=== PATIENT | male | born 1955 | race Caucasian/White ===

== ENCOUNTER 2016-10-03 12:42 | Inpatient (IN) | payer BC ==
[2016-10-03] MEDS ORDERED: NS 0.9% 1000 ML* 1,000 ML IV ONE ×3 (14:17→19:05)
[2016-10-03 14:54] LABS: Hematocrit 47 % (42-52); Hemoglobin 15.7 g/dl (14.0-18.0); Mean Corpuscular HGB Conc 33 g/dl (31-36); Mean Corpuscular Hemoglobin 31 pg (27-31); Mean Corpuscular Volume 95 fL (80-94); Mean Platelet Volume 10 um3 (7.4-10.4); Red Cell Distribution Width 15 % (10.5-15); White Blood Count 14.6 10^3/ul (3.5-10.8)
[2016-10-03 14:57] LABS: Comments Flag Yes
[2016-10-03 14:58] LABS: Add Diff/Slide Review? Slide Review Added
[2016-10-03 15:16] LABS: Albumin 3.8 g/dL (3.2-5.2); BUN/Creatinine Ratio 25.2 (8-20); C Reactive Protein 34.69 mg/L (< 5.00); Calcium 9.2 mg/dL (8.6-10.3); EGFR Non-African American 24.9 (>60); Globulin 2.7 g/dL (2-4); Potassium 4.6 mmol/L (3.5-5.0); Total Bilirubin 0.6 mg/dL (0.2-1.0); Total Protein 6.5 g/dL (6.4-8.9)
[2016-10-03] MEDS ORDERED: Ondansetron INJ* 2 MG/ML VIAL IV PRN (19:05)
[2016-10-03] MEDS ORDERED: Dextrose 50% Syringe 50 ML* 25 GM/50 ML SYRINGE IV PUSH PRN (19:05)
[2016-10-03] MEDS ORDERED: Acetaminophen TAB* 325 MG PO PRN (19:05)
[2016-10-03] MEDS ORDERED: oxyCODONE/Acetamin 5/325 MG* TAB PO PRN (20:14)
[2016-10-03] MEDS ORDERED: Albuterol 2.5 MG/3 ML NEB.SOL* (0.083%) INH PRN (20:18)
[2016-10-03 21:40] LABS: Urine Bacteria Absent (Absent); Urine Bilirubin Negative (Negative); Urine Glucose Negative (Negative); Urine Nitrite Negative (Negative)
[2016-10-03] MEDS: Pregabalin CAP(*) 50 MG PO SCH (21:44)
[2016-10-03] MEDS: Atorvastatin* 20 MG TAB PO SCH (21:45)
[2016-10-03] MEDS: Heparin VIAL(*) 5000 UNITS/ML VIAL (FIVE THOUSAND) SUBCUT SCH (21:46)
--- NOTE | 2016-10-03 21:57 | ED ---
Jaylin Thacker Alfonso, scribed for Rk Garcia MD on 10/03/16 at 1421 . Complex/Multi-Sys Presentation - HPI Summary HPI Summary: This patient is a 61 year old male presenting to [facility] c/o diarrhea for 5 days. He reports vomiting 5 days ago and having diarrhea 10 times a day since. He ate crackers and drank shots of water today. Symptoms aggravated by eating and alleviated by nothing. He reports abdominal pain and chronic back pain. He denies vomiting and nausea today. His who is a nurse reports his stool "smells like c-diff." He denies being on abx recently. - History Of Current Complaint Chief Complaint: EDGeneral Time Seen by Provider: 10/03/16 14:09 Hx Obtained From: Patient, Family/Insurance Agency Manager - Onset/Duration: Sudden Onset, Lasting Days - 5 days, Still Present Timing: Constant Severity Currently: Moderate Severity Initially: Moderate Aggravating Factor(s): Eating Alleviating Factor(s): Nothing Associated Signs And Symptoms: Positive: Vomiting - Positive 5 days ago; negative past 5 days, Diarrhea, Abdominal Pain, Other - Positive chronic low back pain. Negative: Nausea - Allergies/Home Medications Allergies/Adverse Reactions: Allergies Allergy/AdvReac Type Severity Reaction Status Date / Time Cephalexin [From Keflex] Allergy Severe Hives Verified 10/03/16 12:57 Meperidine [From Demerol HCl] Allergy Severe Nausea And Verified 10/03/16 12:57 Vomiting Adhesive Tape Allergy Intermediate Hives Verified 10/03/16 12:57 Cefazolin [From Kefzol] Allergy Rash Verified 10/03/16 12:57 Home Medications: Home Medications Finasteride TAB* [Proscar TAB*] 5 mg PO QPM 10/03/16 [History Confirmed 10/03/16 ] Losartan TAB* [Cozaar TAB*] 100 mg PO DAILY 10/03/16 [History Confirmed 10/03/16 ] Meloxicam(NF) [Mobic(NF)] 15 mg PO DAILY 10/03/16 [History Confirmed 10/03/16] Simvastatin (NF) [Zocor (NF)] 40 mg PO BEDTIME 10/03/16 [History Confirmed 10/03] Xartemis Xr 7.5/325 1 tab PO BID MDD 2 tablets 10/03/16 [History Confirmed 10/03] PMH/Surg Hx/FS Hx/Imm Hx Endocrine/Hematology History: Reports: Hx Diabetes Cardiovascular History: Reports: Hx Coronary Artery Disease, Hx Hypertension - ON MEDS Denies: Hx Pacemaker/ICD, Other Cardiovascular Problems/Disorders Respiratory History: Denies: Other Respiratory Problems/Disorders GI History: Denies: Other GI Disorders History: Reports: Hx Kidney Infection, Hx Kidney Stones - BILAT. HAS STENT IN PLACE, Hx Renal Disease - KIDNEY STONES Musculoskeletal History: Reports: Hx Arthritis - HANDS, KNEES, HIPS, BACK Denies: Other Musculoskeletal History Sensory History: Reports: Hx Hearing Aid Denies: Hx Contacts or Glasses Opthamlomology History: Denies: Hx Contacts or Glasses Neurological History: Denies: Other Neuro Impairments/Disorders Psychiatric History: Reports: Hx Anxiety - NO TREATMENT, Hx Depression - NO TREATMENT Denies: Hx Panic Disorder - Surgical History Surgery Procedure, Year, and Place: RIGHT KIDNEY STENT, BILAT KIDNEY STONE REMOVAL, LUMBAR SURGERY L5-S1 2014 [place]. RIGHT HIP REPLACEMENT. BILATERAL KNEE MENSICUS REPAIR. LASER SURGERY FOR CORRECTIVE VISION Hx Anesthesia Reactions: No Infectious Disease History: Denies: Traveled Outside the [place] in Last 30 Days - Family History Known Family History: Positive: Cardiac Disease - Social History Alcohol Use: Rare Alcohol Amount: HOLIDAYS Substance Use Type: Reports: None Smoking Status (MU): Never Smoked Tobacco Have You Smoked in the Last Year: No Review of Systems Positive: Abdominal Pain, Vomiting - Positive 5 days ago; negative past 5 days, Diarrhea - 10 times a day the past 5 days. Negative: Nausea Positive: Arthralgia - Chronic back pain All Other Systems Reviewed And Are Negative: Yes Physical Exam Triage Information Reviewed: Yes Vital Signs On Initial Exam: Initial Vitals Temp Pulse Resp BP Pulse Ox 97.4 F 93 20 100/56 96 10/03/16 12:57 10/03/16 12:57 10/03/16 12:57 10/03/16 12:57 10/03/16 12:57 Vital Signs Reviewed: Yes Appearance: Positive: Well-Appearing, No Pain Distress, Obese - morbid obesity Skin: Positive: Warm, Skin Color Reflects Adequate Perfusion, Dry Head/Face: Positive: Normal Head/Face Inspection Eyes: Positive: Normal ENT: Positive: Normal ENT inspection Neck: Positive: Supple, Nontender Respiratory/Lung Sounds: Positive: Clear to Auscultation, Breath Sounds Present Cardiovascular: Positive: RRR Abdomen Description: Positive: Nontender, Soft Bowel Sounds: Positive: Present Musculoskeletal: Positive: Normal Neurological: Positive: Normal, Sensory/Motor Intact, Alert, Oriented to Person Place, Time, CN Intact II-III Psychiatric: Positive: Affect/Mood Appropriate Diagnostics - Vital Signs Vital Signs Temp Pulse Resp BP Pulse Ox 10/03/16 12:57 97.4 F 93 20 100/56 96 - Laboratory Lab Results: Lab Results 10/03/16 10/03/16 10/03/16 Range/Units 14:45 14:45 14:45 WBC 14.6 H (3.5-10.8) 10^3/ul RBC 5.00 (4.0-5.4) 10^6/ul Hgb 15.7 (14.0-18.0) g/dl Hct 47 (42-52) % MCV 95 H (80-94) fL MCH 31 (27-31) pg MCHC 33 (31-36) g/dl RDW 15 (10.5-15) % Plt Count 203 (150-450) 10^3/ul MPV 10 (7.4-10.4) um3 Neut % (Auto) 81.2 (38-83) % Lymph % (Auto) 6.7 L (25-47) % [place] % (Auto) 8.6 (1-9) % Eos % (Auto) 3.3 (0-6) % Baso % (Auto) 0.2 (0-2) % Absolute Neuts (auto) 11.8 H (1.5-7.7) 10^3/ul Absolute Lymphs (auto) 1.0 (1.0-4.8) 10^3/ul Absolute Monos (auto) 1.2 H (0-0.8) 10^3/ul Absolute Eos (auto) 0.5 (0-0.6) 10^3/ul Absolute Basos (auto) 0 (0-0.2) 10^3/ul Absolute Nucleated RBC 0.01 10^3/ul Nucleated RBC % 0 Sodium 130 L (133-145) mmol/L Potassium 4.6 (3.5-5.0) mmol/L Chloride 107 (101-111) mmol/L Carbon Dioxide 16 L (22-32) mmol/L Anion Gap 7 (2-11) mmol/L BUN 66 H (6-24) mg/dL Creatinine 2.62 H (0.67-1.17) mg/dL Est GFR ( Amer) 32.0 (>60) Est GFR (Non-Af Amer) 24.9 (>60) BUN/Creatinine Ratio 25.2 H (8-20) Glucose 173 H (70-100) mg/dL Lactic Acid 1.6 (0.5-2.0) mmol/L Calcium 9.2 (8.6-10.3) mg/dL Total Bilirubin 0.60 (0.2-1.0) mg/dL AST 8 L (13-39) U/L ALT 12 (7-52) U/L Alkaline Phosphatase 47 (34-104) U/L C-Reactive Protein 34.69 H (< 5.00) mg/L Total Protein 6.5 (6.4-8.9) g/dL Albumin 3.8 (3.2-5.2) g/dL Globulin 2.7 (2-4) g/dL Albumin/Globulin Ratio 1.4 (1-3) Lipase 19 (11.0-82.0) U/L Result Diagrams: 10/03/16 14:45 10/03/16 14:45 Lab Statement: Any lab studies that have been ordered have been reviewed, and results considered in the medical decision making process. Complex Multi-Symp Course/Dx Course Of Treatment: Mr. Almaguer presented with 5 days of watery diarrhea. He was unable to give us a sample in 5 hours but he was found to be quite dehydrated and I recommended CDU for rehydration. - Diagnoses Provider Diagnoses: Gastroenteritis, Dehydration, severe - Physician Notifications Discussed Care Of Patient With: Velia Adame Time Discussed With Above Provider: 18:28 Instructed by Provider To: Other - Consulted Dr. Adame (hospitalist) who agrees to admit patient. Discharge - Discharge Plan Condition: Stable Disposition: ADMITTED TO [facility] documentation as recorded by the Jaylin light Alfonso accurately reflects the service I personally performed and the decisions made by me, Rk Garcia MD.
[2016-10-03 22:02] LABS: Urine Random Sodium < 18 mmol/L
[2016-10-03] MEDS: NS 0.9% 1000 ML* 1,000 ML IV SCH (23:07)
[2016-10-04] MEDS: oxyCODONE/Acetamin 5/325 MG* TAB PO PRN ×4 (02:30→21:34)
[2016-10-04 04:59] LABS: Hematocrit 40 % (42-52); Hemoglobin 13.4 g/dl (14.0-18.0); Mean Corpuscular HGB Conc 34 g/dl (31-36); Mean Corpuscular Hemoglobin 31 pg (27-31); Mean Corpuscular Volume 93 fL (80-94); Mean Platelet Volume 10 um3 (7.4-10.4); Red Blood Count 4.28 10^6/ul (4.0-5.4); Red Cell Distribution Width 15 % (10.5-15); White Blood Count 14.8 10^3/ul (3.5-10.8)
[2016-10-04 05:02] LABS: Add Diff/Slide Review? Slide Review Added; Comments Flag Yes
[2016-10-04 05:17] LABS: BUN/Creatinine Ratio 29.2 (8-20); Calcium 8.7 mg/dL (8.6-10.3); EGFR African American 40.9 (>60); EGFR Non-African American 31.8 (>60); Potassium 4.1 mmol/L (3.5-5.0)
--- NOTE | 2016-10-04 05:20 | HP ---
CC: Dr. De Los Santos * HISTORY AND PHYSICAL: DATE OF ADMISSION: 10/03/16 PRIMARY CARE PROVIDER: Dr. De Los Santos. ATTENDING PHYSICIAN WHILE IN THE HOSPITAL: Dr. Barry Molina * (report dictated by Devin Ram NP). CHIEF COMPLAINT: 1. Diarrhea. 2. Vomiting. HISTORY OF PRESENTING ILLNESS: Mr. Almaguer is a 61-year-old male patient with multiple medical problems with a history of kidney stones. He comes in today, he states that he noticed, he went to shoot skeet on a trap on Saturday and then Saturday evening he started having one episode of vomiting and then Saturday night and to the morning hours on Saturday he just started having diarrhea. He thinks he is having about 10 to 12 loose yellow bowel movements a day. He had no recent antibiotics and no fevers or abdominal discomfort. He was concerned because he knew he was getting dehydrated. He was feeling lightheaded and drowsy. His felt that he did not seem to be acting himself. He was more again drowsy and lethargic, so she recognized that there may be an issue going on and he may be getting dehydrated and he came into the hospital. He denied having any shortness of breath or chest pain. Again, denied any fevers. No recent antibiotics. Denied any back pain with the exception of his chronic back pain and he was evaluated here. It was noted that he appeared to be dehydrates, appeared to be in acute renal failure. We were asked to evaluate for admission. PAST MEDICAL HISTORY: Significant for: 1. Nephrolithiasis. 2. Hyperlipidemia. 3. Gout. 4. Diabetes. 5. Hypertension. 6. CAD. 7. Back pain. 8. Asthma. 9. ADELA. PAST SURGICAL HISTORY: 1. The patient has had a knee arthroscopy. 2. Right total hip arthroplasty. 3. Back surgery. HOME MEDICATIONS: According to his list include: 1. Xartemis XR 7.5 mg/325 mg 1 tablet p.o. b.i.d. 2. Mobic 15 mg p.o. daily. 3. Hydrochlorothiazide 25 mg p.o. daily. 4. Proscar 5 mg q.p.m. 5. Aspirin 325 mg p.o. b.i.d. 6. Cozaar 100 mg p.o. daily. 7. Insulin Levemir 40 units subcu q.a.m. 8. Toprol 50 mg p.o. q.p.m. 9. Lyrica 300 mg in the morning, 150 mg at bedtime. 10. Glucophage 1700 mg p.o. in the a.m., 850 mg p.o. in the p.m. 11. Zocor 40 mg at bedtime. 12. Norvasc 10 mg daily. 13. Spironolactone 50 mg p.o. q.p.m. ALLERGIES TO MEDICATIONS: Include KEFLEX, DEMEROL, ANCEF, and ADHESIVE TAPE. FAMILY HISTORY: His mother is healthy and still alive, but the father had a history of [place] and CVA. SOCIAL HISTORY: He does not drink, does not smoke. Surrogate decision maker is his significant other. REVIEW OF SYSTEMS: There is no documented fever. Denied any significant weight change. There was no double vision. There was no ear discharge. He denies having any rhinorrhea. No sore throat. No thyroid enlargement. Denied any chest pain. No orthopnea. No nocturnal dyspnea. There was no abdominal pain. There was an episode of nausea and vomiting. No dysuria. No frequency. No loss of consciousness. No pruritus and no skin ulcerations. Review of 14 systems completed, all others were negative. PHYSICAL EXAMINATION GENERAL: At this time, Mr. Almaguer is a 61-year-old male patient; he is morbidly obese. He is sitting in the ER stretcher. He does not appear to be in any acute distress. VITAL SIGNS: Blood pressure 124/66, pulse 95, respirations 16, O2 sat 97%, temperature 98.2. HEENT: Head is atraumatic and normocephalic. Eyes: EOMs are intact. Sclerae were anicteric and not pale. NECK: Supple. Throat: Oral mucosa appears to be moist. No oropharyngeal erythema. LUNGS: Clear to auscultation bilaterally. No wheezes, rales, or rhonchi. HEART: Sounds S1, S2. Regular rate and rhythm. No murmurs, rubs, or gallops. ABDOMEN: Soft, flat, nontender. Bowel sounds were present. EXTREMITIES: Pulses were 2+ throughout. Able to move all 4 extremities with 5/ 5 strength. NEUROLOGICAL: The patient is awake, he is alert, he is oriented x3. His tongue is midline. His jewelry engraver were equal. He had no gross focal deficits. SKIN: Intact. LABORATORY DATA/DIAGNOSTIC STUDIES: Today revealed a WBC of 14.6, RBC of 5.00 , hemoglobin of 15.7, hematocrit 47, and a platelet count of 203. His sodium was 130, potassium 4.6, chloride of 107, bicarb 16, BUN 66, creatinine of 2.62, glucose 173, lactate 1.6, calcium 9.2. Total bili 0.6, AST 8, ALT 12, alk phos 47, albumin of 3.8. Old medical records were reviewed. ASSESSMENT AND PLAN: Mr. Almaguer is a 61-year-old male patient coming into the ER today with complaints of nausea and vomiting and more episodes of diarrhea throughout the week and he will be admitted under observation status for: 1. Gastroenteritis. I suspect he probably has a viral gastroenteritis; however , it is concerning that his white count is 14.6 and he has a mildly elevated CRP. I think we need to get stool cultures, we will do C. diff, ova and parasite, norovirus, rotavirus in the stool culture and see if anything pans out. For the time being, I am holding off antibiotics. He he spikes a fever, starts having abdominal pain, I will put him on Cipro and Flagyl. Probably, we will get imaging of the abdomen, but it was soft and flat, nontender on exam so I do not think we need imaging yet. We will hydrate the patient and treat him supportively and follow. 2. Acute renal failure. I suspect this is probably a prerenal from the fact that he was on his diuretics and having copious amounts of stool. That would also explain his low bicarb as well. My plan is to go ahead and hold his nephrotoxic agents. He is Cozaar, spironolactone, hydrochlorothiazide. We will hold the metformin, we will hold the Mobic. We will hold those medications for the time being and we will hydrate him. We will get a FENa and we will follow. 3. History of nephrolithiasis, not an active issue. 4. Hyperlipidemia. I will continue his statin therapy. 5. Gout. We will hold his allopurinol in the acute illness, we will monitor. 6. Diabetes. He will be on a lispro sliding scale and Levemir. 7. Hypertension. His blood pressure is on the soft side here. His systolics ranged 100 to 120 systolically. I am going to hold his medications with the exception of a beta-almaz, I did order that. I also ordered it though in the immediate release formulation with hold parameters, when he goes home he can go back on sustained release. 8. Coronary artery disease. We will continue his statin therapy and his beta- almaz for the time being and I will continue his aspirin but I am only going to give him his aspirin once daily for the time being. 9. Chronic back pain. I have ordered p.r.n. Percocet. We do not carry his medications. 10. Asthma. I ordered p.r.n. albuterol. 11. Obstructive sleep apnea. We will continue his CPAP. 12. Code status: Full code. 13. Fluids, electrolytes, nutrition: He can have a clear liquid diet. TIME SPENT: On the admission 60 minutes, greater than half the time spent face- to-face with the patient obtaining my history and physical, the other half the time was spent going over the plan of care with the patient and implementing plan of care. I did discuss the plan of care with my attending physician, Dr. Molina, he is in agreement. DEVIN RAM NP [id number]/[facility] #: [id number] ROC[place]
[2016-10-04 06:28] LABS: Immature Granulocytes 22 % (0-9); Metamyelocytes % 1 % (0-2); Neutrophil % 66 % (38-83); RBC Morphology Normal (Normal)
[2016-10-04] MEDS: Heparin VIAL(*) 5000 UNITS/ML VIAL (FIVE THOUSAND) SUBCUT SCH ×3 (06:41→21:37)
[2016-10-04] MEDS: NS 0.9% 1000 ML* 1,000 ML IV SCH (07:30)
[2016-10-04] MEDS: Insulin LISPRO* 1 UNITS UNIT SUBCUT SCH ×3 (08:52→18:34)
[2016-10-04] MEDS: Insulin GLARGINE(*) 1 UNITS UNIT SUBCUT SCH (08:53)
[2016-10-04] MEDS: Pregabalin CAP(*) 100 MG PO SCH (09:00)
[2016-10-04] MEDS: metroNIDAZOLE TAB* 250 MG PO SCH ×3 (09:00→21:36)
[2016-10-04] MEDS: Aspirin TAB* 325 MG PO SCH (09:02)
[2016-10-04] MEDS: Metoprolol Tartrate TAB* 50 mg PO SCH ×2 (09:02→21:36)
[2016-10-04] MEDS ORDERED: oxyCODONE TAB* 5 MG TAB PO ONE (09:44)
[2016-10-04] MEDS: amLODIPine TAB* 5 MG PO SCH (10:24)
--- NOTE | 2016-10-04 11:53 | PN ---
Subjective Date of Service: 10/04/16 Interval History: Pt is unable to use his Xartemis when in hospital and c/o chronic pain "all over ". Diarrhea improving. Denies abd pain Objective Active Medications: Acetaminophen (Tylenol Tab*) 650 mg PO Q4H PRN PRN Reason: FEVER/PAIN Albuterol (Ventolin 2.5 Mg/3 Ml Neb.Bonnie*) 2.5 mg INH Q2H PRN PRN Reason: SOB/WHEEZING Amlodipine Besylate (Norvasc Tab*) 10 mg PO DAILY [facility] Last Admin: 10/04/16 10:24 Dose: 10 mg Aspirin (Aspirin Tab*) 325 mg PO DAILY [facility] Last Admin: 10/04/16 09:02 Dose: 325 mg Atorvastatin Calcium (Lipitor*) 20 mg PO BEDTIME [facility] Last Admin: 10/03/16 21:45 Dose: 20 mg Dextrose (D50w Syringe 50 Ml*) 12.5 gm IV PUSH .FOR FS < 60 - SS PRN PRN Reason: FS < 60 Finasteride (Proscar Tab*) 5 mg PO QPM [facility] Heparin Sodium (Porcine) (Heparin Vial(*)) 5,000 units SUBCUT Q8HR [facility] Last Admin: 10/04/16 06:41 Dose: 5,000 units Lactated Ringer's (Lactated Ringers 1000 Ml Bag*) 1,000 mls @ 100 mls/hr IV PER RATE [facility] Last Admin: 10/04/16 08:58 Dose: 100 mls/hr Insulin Glargine (Lantus(*)) 40 units SUBCUT QAM [facility] Last Admin: 10/04/16 08:53 Dose: 40 units Insulin Human Lispro (Humalog*) 0 units SUBCUT AC [facility] PRN Reason: Protocol Last Admin: 10/04/16 08:52 Dose: 3 units Metoprolol Tartrate (Lopressor Tab*) 50 mg PO Q12HR [facility] Last Admin: 10/04/16 09:02 Dose: 50 mg Metronidazole (Flagyl Tab*) 500 mg PO TID [facility] Last Admin: 10/04/16 09:00 Dose: 500 mg Ondansetron HCl (Zofran Inj*) 4 mg IV Q6H PRN PRN Reason: NAUSEA Oxycodone/Acetaminophen (Percocet 5/325 Tab*) 2 tab PO Q4H PRN PRN Reason: PAIN Last Admin: 10/04/16 10:36 Dose: 2 tab Pregabalin (Lyrica Cap(*)) 150 mg PO BEDTIME [facility] Last Admin: 10/03/16 21:44 Dose: 150 mg Pregabalin (Lyrica Cap(*)) 300 mg PO QAM [facility] Last Admin: 10/04/16 09:00 Dose: 300 mg Vital Signs 10/04/16 10/04/16 10/04/16 08:40 09:00 10:23 Respiratory 16 16 16 Rate 10/04/16 10:36 Respiratory 16 Rate Oxygen Devices in Use Now: None Appearance: 61 yo M in NAD, aAOx3 Eyes: No Scleral Icterus, PERRLA Ears/Nose/Mouth/Throat: NL Teeth, Lips, Gums, Mucous Membranes Moist Neck: NL Appearance and Movements; NL JVP, Trachea Midline Respiratory: Symmetrical Chest Expansion and Respiratory Effort, Clear to Auscultation Cardiovascular: NL Sounds; No Murmurs; No JVD, RRR Abdominal: NL Sounds; No Tenderness; No Distention, No Hepatosplenomegaly Lymphatic: No Cervical Adenopathy Extremities: No Edema, No Clubbing, Cyanosis Skin: No Rash or Ulcers, No Nodules or Sclerosis Neurological: Alert and Oriented x 3, NL Muscle Strength and Tone Result Diagrams: 10/04/16 04:52 10/04/16 04:51 Additional Lab and Data: Lab Results 10/03/16 10/03/16 10/03/16 Range/Units 14:45 14:45 14:45 WBC 14.6 H (3.5-10.8) 10^3/ul RBC 5.00 (4.0-5.4) 10^6/ul Hgb 15.7 (14.0-18.0) g/dl Hct 47 (42-52) % MCV 95 H (80-94) fL MCH 31 (27-31) pg MCHC 33 (31-36) g/dl RDW 15 (10.5-15) % Plt Count 203 (150-450) 10^3/ul MPV 10 (7.4-10.4) um3 Neut % (Auto) 81.2 (38-83) % Lymph % (Auto) 6.7 L (25-47) % [place] % (Auto) 8.6 (1-9) % Eos % (Auto) 3.3 (0-6) % Baso % (Auto) 0.2 (0-2) % Absolute Neuts (auto) 11.8 H (1.5-7.7) 10^3/ul Absolute Lymphs (auto) 1.0 (1.0-4.8) 10^3/ul Absolute Monos (auto) 1.2 H (0-0.8) 10^3/ul Absolute Eos (auto) 0.5 (0-0.6) 10^3/ul Absolute Basos (auto) 0 (0-0.2) 10^3/ul Absolute Nucleated RBC 0.01 10^3/ul Nucleated RBC % 0 Sodium 130 L (133-145) mmol/L Potassium 4.6 (3.5-5.0) mmol/L Chloride 107 (101-111) mmol/L Carbon Dioxide 16 L (22-32) mmol/L Anion Gap 7 (2-11) mmol/L BUN 66 H (6-24) mg/dL Creatinine 2.62 H (0.67-1.17) mg/dL Est GFR ( Amer) 32.0 (>60) Est GFR (Non-Af Amer) 24.9 (>60) BUN/Creatinine Ratio 25.2 H (8-20) Glucose 173 H (70-100) mg/dL Lactic Acid 1.6 (0.5-2.0) mmol/L Calcium 9.2 (8.6-10.3) mg/dL Total Bilirubin 0.60 (0.2-1.0) mg/dL AST 8 L (13-39) U/L ALT 12 (7-52) U/L Alkaline Phosphatase 47 (34-104) U/L C-Reactive Protein 34.69 H (< 5.00) mg/L Total Protein 6.5 (6.4-8.9) g/dL Albumin 3.8 (3.2-5.2) g/dL Globulin 2.7 (2-4) g/dL Albumin/Globulin Ratio 1.4 (1-3) Lipase 19 (11.0-82.0) U/L Assess/Plan/Problems-Billing Assessment: 61 yo M with h/o CKD stage 3, DM2, obesity, chronic pain presents with diarrhea x 3 days and acute renal failure - Patient Problems (1) C. difficile diarrhea Comment: No abd pain Flagyl started today PO. Diarrhea is improving Leukocytosis persists. Bands at 21%, but pt is nontoxic appearing and hemodynamically stable. Will check lactic acid (2) Acute renal failure Comment: On CKD stage 3 due to DM2( creat baseline at 1.2) Improving, cont IVF (3) Acidosis Comment: non anion gap. VBG ordered. suspect due to a comination of IVF(NS switched to LR today) adn renal failure. aldactone/HCTZ held (4) HTN (hypertension) Comment: controlled. cont BB and Norvasc Holding HCTZ/Aldactone due to renal failure (5) DM2 (diabetes mellitus, type 2) Comment: holding metformin, cont Lantus and ISS (6) Chronic pain Comment: Xartemis not on hospital's formulary and [facility] cannot administer pt's own narcotics. will cont Perocet instead. (7) DVT prophylaxis Comment: heparin sc Status and Disposition: inpatient, changed from OBV due to further need of IVF to treat acute renal failure
[2016-10-04 13:21] LABS: Venous Bicarbonate HCO3 15.2 mmol/L (24-28)
[2016-10-04] MEDS: Finasteride TAB* 5 MG PO SCH (17:23)
[2016-10-04] MEDS: Pregabalin CAP(*) 50 MG PO SCH (21:35)
[2016-10-04] MEDS: Atorvastatin* 20 MG TAB PO SCH (21:37)
[2016-10-05] MEDS: oxyCODONE/Acetamin 5/325 MG* TAB PO PRN ×4 (01:42→22:46)
[2016-10-05] MEDS: Heparin VIAL(*) 5000 UNITS/ML VIAL (FIVE THOUSAND) SUBCUT SCH ×3 (05:24→21:08)
[2016-10-05 05:57] LABS: Hematocrit 41 % (42-52); Hemoglobin 13.8 g/dl (14.0-18.0); Mean Corpuscular HGB Conc 34 g/dl (31-36); Mean Corpuscular Hemoglobin 32 pg (27-31); Mean Corpuscular Volume 94 fL (80-94); Mean Platelet Volume 10 um3 (7.4-10.4); Red Blood Count 4.33 10^6/ul (4.0-5.4); Red Cell Distribution Width 15 % (10.5-15); White Blood Count 19.4 10^3/ul (3.5-10.8)
[2016-10-05 06:00] LABS: Add Diff/Slide Review? Slide Review Added; Comments Flag Yes
[2016-10-05 06:17] LABS: BUN/Creatinine Ratio 26.2 (8-20); Calcium 9.3 mg/dL (8.6-10.3); EGFR African American 45.1 (>60); Potassium 4.5 mmol/L (3.5-5.0)
[2016-10-05 08:38] LABS: Immature Granulocytes 16 % (0-9); Metamyelocytes % 6 % (0-2); Myelocytes % 4 % (0-1); Neutrophil % 62 % (38-83); Reactive Lymph % 1 % (0-6)
[2016-10-05 08:39] LABS: RBC Morphology Normal (Normal)
--- NOTE | 2016-10-05 09:14 | PN ---
Subjective Date of Service: 10/05/16 Interval History: Patient seen and examined at bedside. He reports resting well overnight. Denies any CP, SOB, abd pain, n/v. States his diarrhea is starting to "lighten up" and he only had a few episodes yesterday. He is frustrated that his Xartemis is not available to him and reports persistent, severe pain to his hands (particular knuckle joints) and back. Family History: Unchanged from Admission Social History: Unchanged from Admission Past Medical History: Unchanged from Admission Objective Active Medications: Acetaminophen (Tylenol Tab*) 650 mg PO Q4H PRN PRN Reason: FEVER/PAIN Albuterol (Ventolin 2.5 Mg/3 Ml Neb.Bonnie*) 2.5 mg INH Q2H PRN PRN Reason: SOB/WHEEZING Amlodipine Besylate (Norvasc Tab*) 10 mg PO DAILY [facility] Last Admin: 10/04/16 10:24 Dose: 10 mg Aspirin (Aspirin Tab*) 325 mg PO DAILY [facility] Last Admin: 10/04/16 09:02 Dose: 325 mg Atorvastatin Calcium (Lipitor*) 20 mg PO BEDTIME [facility] Last Admin: 10/04/16 21:37 Dose: 20 mg Dextrose (D50w Syringe 50 Ml*) 12.5 gm IV PUSH .FOR FS < 60 - SS PRN PRN Reason: FS < 60 Finasteride (Proscar Tab*) 5 mg PO QPM [facility] Last Admin: 10/04/16 17:23 Dose: 5 mg Heparin Sodium (Porcine) (Heparin Vial(*)) 5,000 units SUBCUT Q8HR [facility] Last Admin: 10/05/16 05:24 Dose: 5,000 units Lactated Ringer's (Lactated Ringers 1000 Ml Bag*) 1,000 mls @ 100 mls/hr IV PER RATE [facility] Last Admin: 10/04/16 21:30 Dose: 100 mls/hr Insulin Glargine (Lantus(*)) 40 units SUBCUT QAM [facility] Last Admin: 10/04/16 08:53 Dose: 40 units Insulin Human Lispro (Humalog*) 0 units SUBCUT AC [facility] PRN Reason: Protocol Last Admin: 10/04/16 18:34 Dose: 6 units Metoprolol Tartrate (Lopressor Tab*) 50 mg PO Q12HR [facility] Last Admin: 10/04/16 21:36 Dose: 50 mg Metronidazole (Flagyl Tab*) 500 mg PO TID [facility] Last Admin: 10/04/16 21:36 Dose: 500 mg Ondansetron HCl (Zofran Inj*) 4 mg IV Q6H PRN PRN Reason: NAUSEA Oxycodone/Acetaminophen (Percocet 5/325 Tab*) 2 tab PO Q4H PRN PRN Reason: PAIN Last Admin: 10/05/16 01:42 Dose: 2 tab Pregabalin (Lyrica Cap(*)) 150 mg PO BEDTIME [facility] Last Admin: 10/04/16 21:35 Dose: 150 mg Pregabalin (Lyrica Cap(*)) 300 mg PO QAM [facility] Last Admin: 10/04/16 09:00 Dose: 300 mg Vital Signs 10/04/16 10/04/16 10/04/16 10:23 10:36 11:00 Temperature Pulse Rate Respiratory 16 16 16 Rate Blood Pressure (mmHg) O2 Sat by Pulse Oximetry 10/04/16 10/04/16 10/04/16 11:41 12:23 12:36 Temperature Pulse Rate 69 Respiratory 16 16 16 Rate Blood Pressure 116/66 (mmHg) O2 Sat by Pulse 100 Oximetry 10/04/16 10/04/16 10/04/16 14:17 14:20 19:55 Temperature 98.1 F Pulse Rate 97 93 Respiratory 16 17 Rate Blood Pressure 155/90 (mmHg) O2 Sat by Pulse 99 99 94 Oximetry 10/04/16 10/04/16 10/04/16 20:00 21:34 21:35 Temperature Pulse Rate Respiratory 16 16 16 Rate Blood Pressure (mmHg) O2 Sat by Pulse Oximetry 10/04/16 10/04/16 10/04/16 23:34 23:35 23:45 Temperature 99.4 F Pulse Rate 77 Respiratory 16 16 18 Rate Blood Pressure 119/73 (mmHg) O2 Sat by Pulse 93 Oximetry 10/05/16 10/05/16 10/05/16 01:42 03:18 03:42 Temperature 98.1 F Pulse Rate 73 Respiratory 16 18 16 Rate Blood Pressure 128/68 (mmHg) O2 Sat by Pulse 96 Oximetry Oxygen Devices in Use Now: None Appearance: WD, WN, middle aged male patient, sitting on edge of bed, NAD Eyes: PERRLA Ears/Nose/Mouth/Throat: Mucous Membranes Moist Neck: NL Appearance and Movements; NL JVP Respiratory: Symmetrical Chest Expansion and Respiratory Effort, Clear to Auscultation Cardiovascular: RRR, No Edema Abdominal: NL Sounds; No Tenderness; No Distention Extremities: No Edema, No Clubbing, Cyanosis Skin: No Rash or Ulcers Neurological: Alert and Oriented x 3, - - [place], exhibits some word finding difficulties Lines/Tubes/Other Access: Clean, Dry and Intact Peripheral IV Nutrition: Taking PO's Result Diagrams: 10/05/16 05:04 10/05/16 05:04 Additional Lab and Data: Lab Results 10/03/16 10/03/16 10/03/16 Range/Units 14:45 14:45 14:45 WBC 14.6 H (3.5-10.8) 10^3/ul RBC 5.00 (4.0-5.4) 10^6/ul Hgb 15.7 (14.0-18.0) g/dl Hct 47 (42-52) % MCV 95 H (80-94) fL MCH 31 (27-31) pg MCHC 33 (31-36) g/dl RDW 15 (10.5-15) % Plt Count 203 (150-450) 10^3/ul MPV 10 (7.4-10.4) um3 Neut % (Auto) 81.2 (38-83) % Lymph % (Auto) 6.7 L (25-47) % [place] % (Auto) 8.6 (1-9) % Eos % (Auto) 3.3 (0-6) % Baso % (Auto) 0.2 (0-2) % Absolute Neuts (auto) 11.8 H (1.5-7.7) 10^3/ul Absolute Lymphs (auto) 1.0 (1.0-4.8) 10^3/ul Absolute Monos (auto) 1.2 H (0-0.8) 10^3/ul Absolute Eos (auto) 0.5 (0-0.6) 10^3/ul Absolute Basos (auto) 0 (0-0.2) 10^3/ul Absolute Nucleated RBC 0.01 10^3/ul Nucleated RBC % 0 Sodium 130 L (133-145) mmol/L Potassium 4.6 (3.5-5.0) mmol/L Chloride 107 (101-111) mmol/L Carbon Dioxide 16 L (22-32) mmol/L Anion Gap 7 (2-11) mmol/L BUN 66 H (6-24) mg/dL Creatinine 2.62 H (0.67-1.17) mg/dL Est GFR ( Amer) 32.0 (>60) Est GFR (Non-Af Amer) 24.9 (>60) BUN/Creatinine Ratio 25.2 H (8-20) Glucose 173 H (70-100) mg/dL Lactic Acid 1.6 (0.5-2.0) mmol/L Calcium 9.2 (8.6-10.3) mg/dL Total Bilirubin 0.60 (0.2-1.0) mg/dL AST 8 L (13-39) U/L ALT 12 (7-52) U/L Alkaline Phosphatase 47 (34-104) U/L C-Reactive Protein 34.69 H (< 5.00) mg/L Total Protein 6.5 (6.4-8.9) g/dL Albumin 3.8 (3.2-5.2) g/dL Globulin 2.7 (2-4) g/dL Albumin/Globulin Ratio 1.4 (1-3) Lipase 19 (11.0-82.0) U/L Assess/Plan/Problems-Billing Assessment: 61 yo M with h/o CKD stage 3, DM2, obesity, chronic pain presents with diarrhea x 3 days and acute renal failure - Patient Problems (1) C. difficile diarrhea Code(s): A04.7 - ENTEROCOLITIS DUE TO CLOSTRIDIUM DIFFICILE Comment: Patient appears to clinically be improving Leukocytosis increased today, but afebrile and hemodynamically stable No abd pain, diarrhea lessening. Will watch for reoccurrence. Continue Flagyl, consider vanco if leukocytosis worsens or diarrhea starts back. (2) Acute renal failure Comment: Acute on chronic CKD stage 3 due to DM2 (creat baseline at 1.2) Improving, cont IVF (3) Acidosis Code(s): E87.2 - ACIDOSIS Comment: Non anion gap Suspect secondary to renal failure Continue to hold aldactone/HCTZ (4) Hyponatremia Code(s): E87.1 - HYPO-OSMOLALITY AND HYPONATREMIA Comment: Suspect secondary to acute renal failure and diarrhea Continue LR, recheck BMP tomorrow (5) Chronic pain Code(s): G89.29 - OTHER CHRONIC PAIN Comment: Xartemis not on hospital's formulary, and [facility] cannot administer pt's own narcotics. Continue Percocet q3h and added on prn oxycodone for breakthrough pain. (6) DM2 (diabetes mellitus, type 2) Comment: BG high 100s-200s Continue Lantus and Lispro SSI Hold home metformin Check HgbA1c Referral to [facility] for diabetes education (7) HTN (hypertension) Code(s): I10 - ESSENTIAL (PRIMARY) HYPERTENSION Comment: Normotensive Continue amlodipine and metoprolol. Holding HCTZ and aldactone due to renal failure (8) DVT prophylaxis Comment: SQ heparin Status and Disposition: inpatient, Anticipate dc in 1-2 days.
[2016-10-05] MEDS: Insulin LISPRO* 1 UNITS UNIT SUBCUT SCH ×3 (09:30→17:52)
[2016-10-05] MEDS: Insulin GLARGINE(*) 1 UNITS UNIT SUBCUT SCH (09:31)
[2016-10-05] MEDS: Pregabalin CAP(*) 100 MG PO SCH (09:32)
[2016-10-05] MEDS: Aspirin TAB* 325 MG PO SCH (09:32)
[2016-10-05] MEDS: metroNIDAZOLE TAB* 250 MG PO SCH ×3 (09:33→20:24)
[2016-10-05] MEDS: Metoprolol Tartrate TAB* 50 mg PO SCH ×2 (09:33→20:24)
[2016-10-05] MEDS: amLODIPine TAB* 5 MG PO SCH (09:33)
[2016-10-05] MEDS ORDERED: oxyCODONE TAB* 5 MG TAB PO PRN (09:36)
[2016-10-05] MEDS: Finasteride TAB* 5 MG PO SCH (17:52)
[2016-10-05] MEDS: Pregabalin CAP(*) 50 MG PO SCH (20:24)
[2016-10-05] MEDS: Atorvastatin* 20 MG TAB PO SCH (20:24)
[2016-10-06] MEDS: Heparin VIAL(*) 5000 UNITS/ML VIAL (FIVE THOUSAND) SUBCUT SCH ×3 (05:17→23:12)
[2016-10-06] MEDS: Aspirin TAB* 325 MG PO SCH (09:25)
[2016-10-06] MEDS: metroNIDAZOLE TAB* 250 MG PO SCH ×3 (09:26→23:10)
[2016-10-06] MEDS: oxyCODONE/Acetamin 5/325 MG* TAB PO PRN ×2 (09:26→13:30)
[2016-10-06] MEDS: Insulin GLARGINE(*) 1 UNITS UNIT SUBCUT SCH (09:27)
[2016-10-06] MEDS: Metoprolol Tartrate TAB* 50 mg PO SCH ×2 (09:27→23:11)
[2016-10-06] MEDS: Pregabalin CAP(*) 100 MG PO SCH (09:27)
[2016-10-06] MEDS: Insulin LISPRO* 1 UNITS UNIT SUBCUT SCH ×3 (09:28→18:19)
[2016-10-06] MEDS ORDERED: Insulin GLARGINE(*) 1 UNITS UNIT SUBCUT SCH (09:44)
--- NOTE | 2016-10-06 09:46 | PN ---
Subjective Date of Service: 10/06/16 Interval History: Mr. Almaguer states that he had no bowel movements yesterday but has had one loose stool thus far today. He denies other complaint including chest pain, SOB , nausea, or abdominal pain. Family History: Unchanged from Admission Social History: Unchanged from Admission Past Medical History: Unchanged from Admission Objective Active Medications: Acetaminophen (Tylenol Tab*) 650 mg PO Q4H PRN Albuterol (Ventolin 2.5 Mg/3 Ml Neb.Bonnie*) 2.5 mg INH Q2H PRN Amlodipine Besylate (Norvasc Tab*) 10 mg PO DAILY [facility] Aspirin (Aspirin Tab*) 325 mg PO DAILY [facility] Atorvastatin Calcium (Lipitor*) 20 mg PO BEDTIME [facility] Dextrose (D50w Syringe 50 Ml*) 12.5 gm IV PUSH .FOR FS < 60 - SS PRN Finasteride (Proscar Tab*) 5 mg PO QPM [facility] Heparin Sodium (Porcine) (Heparin Vial(*)) 5,000 units SUBCUT Q8HR [facility] Lactated Ringer's (Lactated Ringers 1000 Ml Bag*) 1,000 mls @ 100 mls/hr IV PER RATE [facility] Insulin Glargine (Lantus(*)) 40 units SUBCUT QAM [facility] Insulin Human Lispro (Humalog*) 0 units SUBCUT AC [facility] Metoprolol Tartrate (Lopressor Tab*) 50 mg PO Q12HR [facility] Metronidazole (Flagyl Tab*) 500 mg PO TID [facility] Ondansetron HCl (Zofran Inj*) 4 mg IV Q6H PRN Oxycodone HCl (Roxycodone Tab*) 10 mg PO Q8H PRN Oxycodone/Acetaminophen (Percocet 5/325 Tab*) 2 tab PO Q3H PRN Pregabalin (Lyrica Cap(*)) 150 mg PO BEDTIME [facility] Pregabalin (Lyrica Cap(*)) 300 mg PO QAM [facility] Vital Signs 10/05/16 10/05/16 10/05/16 11:31 11:32 16:10 Temperature 97.7 F Pulse Rate 79 Respiratory 16 16 12 Rate Blood Pressure 140/66 (mmHg) O2 Sat by Pulse 99 Oximetry 10/05/16 10/05/16 10/05/16 19:26 19:33 20:00 Temperature 97.4 F Pulse Rate 105 Respiratory 16 16 16 Rate Blood Pressure 147/71 (mmHg) O2 Sat by Pulse 97 Oximetry 10/05/16 10/05/16 10/05/16 20:24 21:33 22:24 Temperature Pulse Rate Respiratory 16 16 16 Rate Blood Pressure (mmHg) O2 Sat by Pulse Oximetry 10/05/16 10/05/16 10/06/16 22:46 23:34 00:46 Temperature 98.7 F Pulse Rate 76 Respiratory 16 16 16 Rate Blood Pressure 109/65 (mmHg) O2 Sat by Pulse 96 Oximetry 10/06/16 10/06/16 10/06/16 05:15 07:57 08:18 Temperature 97.4 F 97.5 F Pulse Rate 91 81 90 Respiratory 16 16 17 Rate Blood Pressure 142/93 141/85 (mmHg) O2 Sat by Pulse 98 99 98 Oximetry 10/06/16 10/06/16 09:26 09:27 Temperature Pulse Rate Respiratory 18 18 Rate Blood Pressure (mmHg) O2 Sat by Pulse Oximetry Oxygen Devices in Use Now: None Appearance: Male sitting up on edge of bed in NAD Eyes: No Scleral Icterus Ears/Nose/Mouth/Throat: Mucous Membranes Moist Neck: Trachea Midline Respiratory: Symmetrical Chest Expansion and Respiratory Effort, Clear to Auscultation Cardiovascular: NL Sounds; No Murmurs; No JVD, No Edema Abdominal: NL Sounds; No Tenderness; No Distention Lymphatic: No Cervical Adenopathy Extremities: No Edema Skin: No Rash or Ulcers Neurological: Alert and Oriented x 3, NL Muscle Strength and Tone Nutrition: Taking PO's Result Diagrams: 10/06/16 11:41 10/05/16 05:04 Additional Lab and Data: Lab Results 10/03/16 10/03/16 10/03/16 Range/Units 14:45 14:45 14:45 WBC 14.6 H (3.5-10.8) 10^3/ul RBC 5.00 (4.0-5.4) 10^6/ul Hgb 15.7 (14.0-18.0) g/dl Hct 47 (42-52) % MCV 95 H (80-94) fL MCH 31 (27-31) pg MCHC 33 (31-36) g/dl RDW 15 (10.5-15) % Plt Count 203 (150-450) 10^3/ul MPV 10 (7.4-10.4) um3 Neut % (Auto) 81.2 (38-83) % Lymph % (Auto) 6.7 L (25-47) % [place] % (Auto) 8.6 (1-9) % Eos % (Auto) 3.3 (0-6) % Baso % (Auto) 0.2 (0-2) % Absolute Neuts (auto) 11.8 H (1.5-7.7) 10^3/ul Absolute Lymphs (auto) 1.0 (1.0-4.8) 10^3/ul Absolute Monos (auto) 1.2 H (0-0.8) 10^3/ul Absolute Eos (auto) 0.5 (0-0.6) 10^3/ul Absolute Basos (auto) 0 (0-0.2) 10^3/ul Absolute Nucleated RBC 0.01 10^3/ul Nucleated RBC % 0 Sodium 130 L (133-145) mmol/L Potassium 4.6 (3.5-5.0) mmol/L Chloride 107 (101-111) mmol/L Carbon Dioxide 16 L (22-32) mmol/L Anion Gap 7 (2-11) mmol/L BUN 66 H (6-24) mg/dL Creatinine 2.62 H (0.67-1.17) mg/dL Est GFR ( Amer) 32.0 (>60) Est GFR (Non-Af Amer) 24.9 (>60) BUN/Creatinine Ratio 25.2 H (8-20) Glucose 173 H (70-100) mg/dL Lactic Acid 1.6 (0.5-2.0) mmol/L Calcium 9.2 (8.6-10.3) mg/dL Total Bilirubin 0.60 (0.2-1.0) mg/dL AST 8 L (13-39) U/L ALT 12 (7-52) U/L Alkaline Phosphatase 47 (34-104) U/L C-Reactive Protein 34.69 H (< 5.00) mg/L Total Protein 6.5 (6.4-8.9) g/dL Albumin 3.8 (3.2-5.2) g/dL Globulin 2.7 (2-4) g/dL Albumin/Globulin Ratio 1.4 (1-3) Lipase 19 (11.0-82.0) U/L Assess/Plan/Problems-Billing Assessment: Mr. Almaguer is a 61 yo M with h/o CKD stage 3, DM2, obesity, and chronic pain who presented on 10/04/16 with diarrhea x 3 days and acute renal failure. - Patient Problems (1) Acute renal failure Comment: - Improving. - Acute on chronic, CKD stage 3 (creat baseline at 1.2). - Continue IVF. (2) C. difficile diarrhea Comment: - Patient appears to clinically be improving, though has had one loose stool today and his WBC is elevated. CRP pending. He is afebrile and hemodynamically stable. - Continue Flagyl. (3) Acidosis Comment: - Essentially unchanged since arrival. - Non-anion gap, suspect secondary to renal failure. - Continue to hold aldactone/HCTZ, continue IVF. (4) Hyponatremia Comment: - Essentially unchanged since arrival. - Suspect secondary to acute renal failure and diarrhea - Continue LR, recheck BMP tomorrow. (5) DM2 (diabetes mellitus, type 2) Comment: - BG high, 200-250. HgbA1c 7.2. - Increase Lantus and Lispro SSI. - Hold home metformin. - Refer to [facility] for diabetes education at discharge. (6) HTN (hypertension) Comment: - BP well controlled. - Continue amlodipine and metoprolol. - Holding HCTZ and aldactone due to acute renal failure. (7) Chronic pain Comment: - Xartemis not on hospital's formulary. - Continue Percocet q3h with prn oxycodone for breakthrough pain. (8) Full code status (9) DVT prophylaxis Comment: - SQ heparin. Status and Disposition: Inpatient with expected LOS > 2 days. Anticipate discharge to home when medically stable.
[2016-10-06] MEDS: amLODIPine TAB* 5 MG PO SCH (10:14)
[2016-10-06] MEDS ORDERED: Insulin GLARGINE(*) 1 UNITS UNIT SUBCUT ONE (11:05)
[2016-10-06 11:48] LABS: Hematocrit 38 % (42-52); Hemoglobin 12.5 g/dl (14.0-18.0); Mean Corpuscular HGB Conc 33 g/dl (31-36); Mean Corpuscular Hemoglobin 31 pg (27-31); Mean Corpuscular Volume 94 fL (80-94); Mean Platelet Volume 10 um3 (7.4-10.4); Red Blood Count 4.01 10^6/ul (4.0-5.4); Red Cell Distribution Width 14 % (10.5-15); White Blood Count 21.6 10^3/ul (3.5-10.8)
[2016-10-06 12:22] LABS: Add Diff/Slide Review? Slide Review Added; Comments Flag Yes
[2016-10-06 13:27] LABS: Eosinophils % 4 % (0-6); Immature Granulocytes 19 % (0-9); Metamyelocytes % 3 % (0-2); Myelocytes % 1 % (0-1); Neutrophil % 62 % (38-83)
[2016-10-06 13:29] LABS: RBC Morphology Normal (Normal)
[2016-10-06] MEDS: Finasteride TAB* 5 MG PO SCH (18:20)
[2016-10-06] MEDS: Atorvastatin* 20 MG TAB PO SCH (23:09)
[2016-10-06] MEDS: Pregabalin CAP(*) 50 MG PO SCH (23:10)
[2016-10-07 05:24] LABS: Hematocrit 36 % (42-52); Hemoglobin 12.1 g/dl (14.0-18.0); Mean Corpuscular HGB Conc 34 g/dl (31-36); Mean Corpuscular Hemoglobin 33 pg (27-31); Mean Corpuscular Volume 96 fL (80-94); Mean Platelet Volume 10 um3 (7.4-10.4); Red Blood Count 3.72 10^6/ul (4.0-5.4); Red Cell Distribution Width 14 % (10.5-15); White Blood Count 18.2 10^3/ul (3.5-10.8)
[2016-10-07 05:32] LABS: Add Diff/Slide Review? Slide Review Added; Comments Flag Yes
[2016-10-07] MEDS: Heparin VIAL(*) 5000 UNITS/ML VIAL (FIVE THOUSAND) SUBCUT SCH (05:40)
[2016-10-07 05:42] LABS: BUN/Creatinine Ratio 24.6 (8-20); C Reactive Protein 140.81 mg/L (< 5.00); Calcium 9.3 mg/dL (8.6-10.3); EGFR African American 74.6 (>60); Potassium 4.3 mmol/L (3.5-5.0)
[2016-10-07] MEDS: Aspirin TAB* 325 MG PO SCH (07:51)
[2016-10-07] MEDS: oxyCODONE/Acetamin 5/325 MG* TAB PO PRN ×2 (07:51→10:56)
[2016-10-07] MEDS: metroNIDAZOLE TAB* 250 MG PO SCH (07:52)
[2016-10-07] MEDS: amLODIPine TAB* 5 MG PO SCH (07:52)
[2016-10-07] MEDS: Pregabalin CAP(*) 100 MG PO SCH (07:52)
[2016-10-07] MEDS: Insulin LISPRO* 1 UNITS UNIT SUBCUT SCH ×2 (07:53→13:01)
[2016-10-07] MEDS: Metoprolol Tartrate TAB* 50 mg PO SCH (07:53)
--- NOTE | 2016-10-07 08:15 | PN ---
Subjective Date of Service: 10/07/16 Interval History: Mr. Almaguer states that he is feeling relatively well today. He denies abdominal pain, has had two small loose bowel movements since I assessed him yesterday, and is tolerating oral intake well without any nausea. He denies chest pain or SOB. He is eager for discharge to home. Family History: Unchanged from Admission Social History: Unchanged from Admission Past Medical History: Unchanged from Admission Objective Active Medications: Acetaminophen (Tylenol Tab*) 650 mg PO Q4H PRN Albuterol (Ventolin 2.5 Mg/3 Ml Neb.Bonnie*) 2.5 mg INH Q2H PRN Amlodipine Besylate (Norvasc Tab*) 10 mg PO DAILY [facility] Aspirin (Aspirin Tab*) 325 mg PO DAILY [facility] Atorvastatin Calcium (Lipitor*) 20 mg PO BEDTIME [facility] Dextrose (D50w Syringe 50 Ml*) 12.5 gm IV PUSH .FOR FS < 60 - SS PRN Finasteride (Proscar Tab*) 5 mg PO QPM [facility] Heparin Sodium (Porcine) (Heparin Vial(*)) 5,000 units SUBCUT Q8HR [facility] Lactated Ringer's (Lactated Ringers 1000 Ml Bag*) 1,000 mls @ 100 mls/hr IV PER RATE [facility] Insulin Glargine (Lantus(*)) 45 units SUBCUT QAM [facility] Insulin Human Lispro (Humalog*) 0 units SUBCUT AC [facility] Metoprolol Tartrate (Lopressor Tab*) 50 mg PO Q12HR [facility] Metronidazole (Flagyl Tab*) 500 mg PO TID [facility] Ondansetron HCl (Zofran Inj*) 4 mg IV Q6H PRN Oxycodone HCl (Roxycodone Tab*) 10 mg PO Q8H PRN Oxycodone/Acetaminophen (Percocet 5/325 Tab*) 2 tab PO Q3H PRN Pregabalin (Lyrica Cap(*)) 150 mg PO BEDTIME [facility] Pregabalin (Lyrica Cap(*)) 300 mg PO QAM [facility] Vital Signs 10/06/16 10/06/16 10/06/16 08:18 09:26 09:27 Temperature Pulse Rate 90 Respiratory 17 18 18 Rate Blood Pressure (mmHg) O2 Sat by Pulse 98 Oximetry 10/06/16 10/06/16 10/06/16 11:26 11:59 13:30 Temperature 99.0 F Pulse Rate 60 Respiratory 18 15 18 Rate Blood Pressure 130/69 (mmHg) O2 Sat by Pulse 97 Oximetry 10/06/16 10/06/16 10/06/16 15:30 16:18 20:00 Temperature 97.7 F Pulse Rate 70 Respiratory 18 16 18 Rate Blood Pressure 132/65 (mmHg) O2 Sat by Pulse 98 Oximetry 10/06/16 10/06/16 10/06/16 20:55 23:10 23:43 Temperature 97.6 F 98.3 F Pulse Rate 78 81 Respiratory 18 20 18 Rate Blood Pressure 161/69 141/75 (mmHg) O2 Sat by Pulse 98 98 Oximetry 10/07/16 10/07/16 10/07/16 01:10 03:42 07:51 Temperature 98.2 F Pulse Rate 66 Respiratory 18 18 20 Rate Blood Pressure 115/49 (mmHg) O2 Sat by Pulse 97 Oximetry 10/07/16 07:52 Temperature Pulse Rate Respiratory 20 Rate Blood Pressure (mmHg) O2 Sat by Pulse Oximetry Oxygen Devices in Use Now: None Appearance: Male sitting up in chair in NAD Eyes: No Scleral Icterus Ears/Nose/Mouth/Throat: Mucous Membranes Moist Neck: Trachea Midline Respiratory: Symmetrical Chest Expansion and Respiratory Effort, Clear to Auscultation Cardiovascular: NL Sounds; No Murmurs; No JVD, No Edema Abdominal: NL Sounds; No Tenderness; No Distention Lymphatic: No Cervical Adenopathy Extremities: No Edema Skin: No Rash or Ulcers Neurological: Alert and Oriented x 3, NL Muscle Strength and Tone Nutrition: Taking PO's Result Diagrams: 10/07/16 04:55 10/07/16 04:55 Additional Lab and Data: Lab Results 10/03/16 10/03/16 10/03/16 Range/Units 14:45 14:45 14:45 WBC 14.6 H (3.5-10.8) 10^3/ul RBC 5.00 (4.0-5.4) 10^6/ul Hgb 15.7 (14.0-18.0) g/dl Hct 47 (42-52) % MCV 95 H (80-94) fL MCH 31 (27-31) pg MCHC 33 (31-36) g/dl RDW 15 (10.5-15) % Plt Count 203 (150-450) 10^3/ul MPV 10 (7.4-10.4) um3 Neut % (Auto) 81.2 (38-83) % Lymph % (Auto) 6.7 L (25-47) % [place] % (Auto) 8.6 (1-9) % Eos % (Auto) 3.3 (0-6) % Baso % (Auto) 0.2 (0-2) % Absolute Neuts (auto) 11.8 H (1.5-7.7) 10^3/ul Absolute Lymphs (auto) 1.0 (1.0-4.8) 10^3/ul Absolute Monos (auto) 1.2 H (0-0.8) 10^3/ul Absolute Eos (auto) 0.5 (0-0.6) 10^3/ul Absolute Basos (auto) 0 (0-0.2) 10^3/ul Absolute Nucleated RBC 0.01 10^3/ul Nucleated RBC % 0 Sodium 130 L (133-145) mmol/L Potassium 4.6 (3.5-5.0) mmol/L Chloride 107 (101-111) mmol/L Carbon Dioxide 16 L (22-32) mmol/L Anion Gap 7 (2-11) mmol/L BUN 66 H (6-24) mg/dL Creatinine 2.62 H (0.67-1.17) mg/dL Est GFR ( Amer) 32.0 (>60) Est GFR (Non-Af Amer) 24.9 (>60) BUN/Creatinine Ratio 25.2 H (8-20) Glucose 173 H (70-100) mg/dL Lactic Acid 1.6 (0.5-2.0) mmol/L Calcium 9.2 (8.6-10.3) mg/dL Total Bilirubin 0.60 (0.2-1.0) mg/dL AST 8 L (13-39) U/L ALT 12 (7-52) U/L Alkaline Phosphatase 47 (34-104) U/L C-Reactive Protein 34.69 H (< 5.00) mg/L Total Protein 6.5 (6.4-8.9) g/dL Albumin 3.8 (3.2-5.2) g/dL Globulin 2.7 (2-4) g/dL Albumin/Globulin Ratio 1.4 (1-3) Lipase 19 (11.0-82.0) U/L Assess/Plan/Problems-Billing Assessment: Mr. Almaguer is a 61 yo M with h/o CKD stage 3, DM2, obesity, and chronic pain who presented on 10/04/16 with diarrhea x 3 days and acute renal failure. - Patient Problems (1) C. difficile diarrhea Comment: - Patient continues to improve. He has had minimal stool, has no abd pain, and is tolerating oral intake well. He is afebrile and hemodynamically stable. His WBC is now falling. - Continue Flagyl po. (2) Acute renal failure Comment: - Resolved. - Acute on chronic, CKD stage 3 (creat baseline at 1.2). (3) Acidosis Comment: - Resolving. - Non-anion gap, suspect secondary to renal failure. - Resume aldactone/HCTZ at time of follow up with PCP. (4) Hyponatremia Comment: - Improving. - Suspect secondary to acute renal failure and diarrhea. (5) DM2 (diabetes mellitus, type 2) Comment: - Patient reports BGs controlled at home, HgbA1c 7.2. Resume home metformin. - Refer to [facility] for diabetes education at discharge. (6) HTN (hypertension) Comment: - BP well controlled. - Continue amlodipine and metoprolol. Resume hctz and aldactone at time of follow up with PCP. (7) Chronic pain Comment: - Resume Xartemis. (8) Full code status (9) DVT prophylaxis Comment: - SQ heparin. Status and Disposition: Inpatient with expected LOS > 2 days. Discharge to home.
[2016-10-07 08:28] VITALS: BP 147/80
--- NOTE | 2016-10-07 14:02 | DS ---
CC: Dr. De Los Santos * [facility] MEDICINE DISCHARGE SUMMARY: DATE OF ADMISSION: 10/03/2016 DATE OF DISCHARGE: 10/07/2016 ATTENDING PHYSICIAN: Jerry Olsen MD* (dictation provided by Riri Sutherland NP ) PRIMARY CARE PHYSICIAN: Jr De Los Santos MD PRIMARY DIAGNOSIS: 1. Clostridium difficile colitis. 2. Acute on chronic renal failure. SECONDARY DIAGNOSES: 1. History of nephrolithiasis. 2. Hyperlipidemia. 3. Gout. 4. Type 2 diabetes, insulin dependent. 5. Hypertension. 6. Coronary artery disease. 7. Chronic back pain. 8. Asthma. 9. Obstructive sleep apnea. 10. Chronic kidney disease. PAST SURGICAL HISTORY: 1. History of knee arthroscopy. 2. Right total hip arthroplasty. 3. History of back surgery. MEDICATIONS AT THE TIME OF DISCHARGE:: 1. Flagyl 500 mg p.o. t.i.d. x10 days (to complete a 14 day course). 2. Xartemis XR 7.5/325 mg one tablet p.o. b.i.d. 3. Mobic 15 mg p.o. daily. 4. Proscar 5 mg p.o. every p.m. 5. Aspirin 325 mg p.o. b.i.d. 6. Cozaar 100 mg p.o. daily. 7. Levemir insulin 40 units subcutaneously every a.m. 8. Toprol 50 mg p.o. every p.m. 9. Lyrica 300 mg in the morning and 150 mg at bedtime. 10. Metformin 1700 mg p.o. in the a.m. and 850 mg p.o. in the p.m. 11. Zocor 40 mg at bedtime. 12. Norvasc 10 mg p.o. daily. Patient has been instructed to hold spironolactone and hydrochlorothiazide until followup with Dr. De Los Santos given recent acute renal failure. HOSPITAL COURSE: Mr. Almaguer is a 61-year-old male with past medical history as outlined above who presented to the hospital on 10/03/16 with concern for diarrhea and vomiting. Mr. Almaguer reported that he had 5 days of diarrhea with nausea at home. He was having about 10-12 loose yellow bowel movements a day. He denies any recent antibiotics, fevers, abdominal discomfort. In the emergency room he had a white blood cell count of 14.6, BUN of 66 and a creatinine of 2.62. Mr. Almaguer was admitted to the hospital. Ultimately his stool culture was positive for C. difficile. He was started on Flagyl 500 mg p.o. t.i.d. With this he has had good resolution of his diarrhea and is down to about 2 bowel movements per day. He has no abdominal pain. He is tolerating oral intake well. His BUN and creatinine today are down to 31 and 1.26 respectively, which is essentially at his baseline. His leukocytosis, which peaked at 21.6 is now down to 18.2. He is afebrile. Mr. Almaguer is doing very well today. Again, he is tolerating oral intake and has minimal bowel movements. He is hemodynamically stable and his white blood cell count is falling. He is medically stable to be discharged to home to followup with Dr. De Los Santos per routine. I have instructed him to hold spironolactone and hydrochlorothiazide until followup with Dr. De Los Santos given his acute renal failure. DISPOSITION: To home. DIET: Consistent carbohydrate, low fat, low salt. ACTIVITY: As tolerated. FOLLOWUP PLANS: Please followup with Dr. De Los Santos in the next one week to followup on C. difficile treatment efficacy and to also consider resumption of hydrochlorothiazide and spironolactone. TIME SPENT: Approximately 60 minutes was spent in the discharge of this patient , more than half the time spent with the patient at the bedside reviewing the events leading up to this hospitalization and during this hospitalization, performing the physical examination, and reviewing the plan of care. RIRI SUTHERLAND NP [id number]/[facility] #: [id number] [place]
[2016-10-09 22:18] LABS: Stool Norovirus Ag NOT DETECTED
== END 2016-10-07 13:45 | disposition home or self-care (01) | DRG 248 ==
LOC: ED 12:42 → MED 19:01 → OBSVTOIN 10-04 08:08
PROVIDERS: ADMIT Hospitalist; ATTEND Internal Medicine
DX: A04.7 Enterocolitis due to Clostridium difficile (principal); N17.9 Acute kidney failure, unspecified; E87.2 Acidosis; E11.22 Type 2 diabetes mellitus with diabetic chronic kidney disease; I13.10 Hypertensive heart and chronic kidney disease without heart failure, with stage 1 through stage 4 chronic kidney disease, or unspecified chronic kidney disease; N18.3 Chronic kidney disease, stage 3 (moderate); E87.1 Hypo-osmolality and hyponatremia; I25.10 Atherosclerotic heart disease of native coronary artery without angina pectoris; E78.5 Hyperlipidemia, unspecified; M10.9 Gout, unspecified; G47.33 Obstructive sleep apnea (adult) (pediatric); J45.909 Unspecified asthma, uncomplicated; M54.9 Dorsalgia, unspecified; Z96.641 Presence of right artificial hip joint; Z79.84 Long term (current) use of oral hypoglycemic drugs; Z79.82 Long term (current) use of aspirin; Z79.4 Long term (current) use of insulin; Z79.899 Other long term (current) drug therapy; Z88.8 Allergy status to other drugs, medicaments and biological substances; Z91.048 Other nonmedicinal substance allergy status; Z82.3 Family history of stroke; Z82.49 Family history of ischemic heart disease and other diseases of the circulatory system
CPT/HCPCS: 36415; 80048; 80053; 81003; 81015; 82272; 82570; 82803; 83036; 83605; 83630; 83690; 84300; 85025; 85610; 86140; 87040; 87045; 87046; 87086; 87177; 87209; 87328; 87329; 87425; 87449; 87493; 87899; 94760; A9270-GY; G0378; J1644

== ENCOUNTER 2021-06-02 10:44 | Observation (INO) ==
[2021-06-02 12:58] LABS: Hematocrit 38 % (42-52); Hemoglobin 12.7 g/dL (14.0-18.0); Mean Corpuscular HGB Conc 34 g/dL (31-36); Mean Corpuscular Hemoglobin 31 pg (27-31); Mean Corpuscular Volume 93 fL (80-94); Red Blood Count 4.07 10^6 /uL (4.18-5.48); Red Cell Distribution Width 15 % (10-15); White Blood Count 11.4 10^3/uL (3.5-10.8)
[2021-06-02 13:08] LABS: ALT 11 U/L (7-52); Albumin 3.3 g/dL (3.2-5.2); Albumin/Globulin Ratio 1.2 (1-3); Alkaline Phosphatase 60 U/L (35-149); Blood Urea Nitrogen 35 mg/dL (6-24); CO2 Carbon Dioxide 23 mmol/L (22-32); Calcium 9.6 mg/dL (8.6-10.3); Chloride 109 mmol/L (101-111); Globulin 2.8 g/dL (2-4); Glucose 126 mg/dL (70-100); Sodium 139 mmol/L (135-145); Total Protein 6.1 g/dL (6.4-8.9); eGFR CKD-EPI 31.2 (>60)
[2021-06-02 13:18] LABS: Anion Gap 7 mmol/L (2-11)
[2021-06-02 13:55] LABS: ABS Basophils 0.1 10^3/ul (0-0.2); ABS Eosinophils 0.5 10^3/ul (0-0.6); ABS Lymphocytes 1.1 10^3/ul (1.0-4.8); ABS Monocytes 0.7 10^3/ul (0-0.8); ABS Neutrophils 9.1 10^3/ul (1.5-7.7); Eosinophil % 4.2 %; Lymphocyte % 9.3 %; Mean Platelet Volume 9.9 fL (7.4-10.4); Platelet Count 179 10^3/uL (150-450)
[2021-06-02 14:20] LABS: Potassium Redraw 4.2 mmol/L (3.5-5.0)
[2021-06-02 16:36] LABS: C Reactive Protein 5.39 mg/L (<8.01)
[2021-06-02] MEDS: Enoxaparin 40 MG/0.4 ML SYR SUBCUT SCH (18:16)
[2021-06-02] MEDS: oxyCODONE SR 20 mg TAB PO SCH (22:45)
[2021-06-03 06:54] LABS: ABS Basophils 0.1 10^3/ul (0-0.2); ABS Eosinophils 0.5 10^3/ul (0-0.6); ABS Lymphocytes 1.3 10^3/ul (1.0-4.8); ABS Monocytes 0.7 10^3/ul (0-0.8); ABS Neutrophils 6.9 10^3/ul (1.5-7.7); Eosinophil % 5.7 %; Hematocrit 37 % (42-52); Hemoglobin 12.4 g/dL (14.0-18.0); Lymphocyte % 13.6 %; Mean Corpuscular HGB Conc 34 g/dL (31-36); Mean Corpuscular Hemoglobin 32 pg (27-31); Mean Corpuscular Volume 94 fL (80-94); Mean Platelet Volume 9.6 fL (7.4-10.4); Platelet Count 182 10^3/uL (150-450); Red Blood Count 3.94 10^6 /uL (4.18-5.48); Red Cell Distribution Width 15 % (10-15); White Blood Count 9.5 10^3/uL (3.5-10.8)
[2021-06-03] MEDS ORDERED: Flu vaccine *QUAD* 2021-22* 0.5 ML SYRINGE IM ONE (09:00)
[2021-06-03] MEDS: oxyCODONE SR 20 mg TAB PO SCH ×3 (10:39→20:24)
[2021-06-03] MEDS: Enoxaparin 40 MG/0.4 ML SYR SUBCUT SCH (14:58)
[2021-06-04] MEDS: oxyCODONE SR 20 mg TAB PO SCH ×3 (07:46→20:32)
[2021-06-04] MEDS ORDERED: Senna TAB 8.6 mg TAB PO PRN (13:03)
[2021-06-04] MEDS ORDERED: Magnesium Hydroxide LIQ 30 ML UDC PO ONE (13:04)
[2021-06-04] MEDS: Enoxaparin 40 MG/0.4 ML SYR SUBCUT SCH (15:25)
[2021-06-05] MEDS: oxyCODONE SR 20 mg TAB PO SCH ×3 (08:58→20:18)
[2021-06-05] MEDS: Polyethylene Glycol 3350 17 GM PACKET PO SCH (09:00)
[2021-06-05] MEDS: Enoxaparin 40 MG/0.4 ML SYR SUBCUT SCH (17:02)
[2021-06-06] MEDS: Polyethylene Glycol 3350 17 GM PACKET PO SCH (09:17)
[2021-06-06] MEDS: oxyCODONE SR 20 mg TAB PO SCH ×3 (09:19→20:16)
[2021-06-06] MEDS: Enoxaparin 40 MG/0.4 ML SYR SUBCUT SCH (14:48)
[2021-06-07] MEDS: oxyCODONE SR 20 mg TAB PO SCH (09:00)
[2021-06-07] MEDS: Polyethylene Glycol 3350 17 GM PACKET PO SCH (09:01)
[2021-06-07 13:36] VITALS: BP 153/63
== END 2021-06-07 14:35 | disposition swing bed (61) ==
LOC: ED 10:44 → EDHOLD 10:44 → SUATTDRO 15:31 → MED 21:08 → MEDTELE 06-03 10:30
PROVIDERS: ADMIT Hospitalist; ATTEND Internal Medicine

== ENCOUNTER 2021-06-07 14:41 | Inpatient (IN) ==
[2021-06-07] MEDS ORDERED: Senna TAB 8.6 mg TAB PO PRN (14:59)
[2021-06-07] MEDS: Enoxaparin 40 MG/0.4 ML SYR SUBCUT SCH (16:15)
[2021-06-07] MEDS: oxyCODONE SR 20 mg TAB PO SCH ×2 (16:15→23:59)
[2021-06-08] MEDS: oxyCODONE SR 20 mg TAB PO SCH ×3 (08:51→20:15)
[2021-06-08] MEDS: Polyethylene Glycol 3350 17 GM PACKET PO SCH (11:36)
[2021-06-08] MEDS: Enoxaparin 40 MG/0.4 ML SYR SUBCUT SCH (18:43)
[2021-06-09] MEDS: oxyCODONE SR 20 mg TAB PO SCH ×3 (07:51→20:35)
[2021-06-09] MEDS: Polyethylene Glycol 3350 17 GM PACKET PO SCH (07:55)
[2021-06-09] MEDS: Enoxaparin 40 MG/0.4 ML SYR SUBCUT SCH (14:06)
[2021-06-10] MEDS: Polyethylene Glycol 3350 17 GM PACKET PO SCH (09:11)
[2021-06-10] MEDS: oxyCODONE SR 20 mg TAB PO SCH ×3 (09:12→20:22)
[2021-06-10] MEDS: Enoxaparin 40 MG/0.4 ML SYR SUBCUT SCH (15:28)
[2021-06-11] MEDS: oxyCODONE SR 20 mg TAB PO SCH ×3 (09:09→20:49)
[2021-06-11] MEDS: Polyethylene Glycol 3350 17 GM PACKET PO SCH (09:10)
[2021-06-11] MEDS: Enoxaparin 40 MG/0.4 ML SYR SUBCUT SCH (14:40)
[2021-06-12] MEDS: oxyCODONE SR 20 mg TAB PO SCH ×4 (07:54→20:35)
[2021-06-12] MEDS: Polyethylene Glycol 3350 17 GM PACKET PO SCH (07:57)
[2021-06-12] MEDS: Enoxaparin 40 MG/0.4 ML SYR SUBCUT SCH (14:49)
[2021-06-13] MEDS: oxyCODONE SR 20 mg TAB PO SCH ×4 (03:51→20:01)
[2021-06-13] MEDS: Polyethylene Glycol 3350 17 GM PACKET PO SCH (08:44)
[2021-06-13] MEDS: Enoxaparin 40 MG/0.4 ML SYR SUBCUT SCH (14:32)
[2021-06-14] MEDS: oxyCODONE SR 20 mg TAB PO SCH ×4 (03:31→20:55)
[2021-06-14] MEDS: Polyethylene Glycol 3350 17 GM PACKET PO SCH (10:08)
[2021-06-14] MEDS: Enoxaparin 40 MG/0.4 ML SYR SUBCUT SCH (16:14)
[2021-06-15] MEDS: oxyCODONE SR 20 mg TAB PO SCH ×4 (03:35→21:02)
[2021-06-15] MEDS: Polyethylene Glycol 3350 17 GM PACKET PO SCH (09:21)
[2021-06-15] MEDS: Enoxaparin 40 MG/0.4 ML SYR SUBCUT SCH (15:25)
[2021-06-16] MEDS: oxyCODONE SR 20 mg TAB PO SCH ×4 (03:50→20:52)
[2021-06-16] MEDS: Polyethylene Glycol 3350 17 GM PACKET PO SCH (09:30)
[2021-06-16] MEDS: Enoxaparin 40 MG/0.4 ML SYR SUBCUT SCH (15:35)
[2021-06-17] MEDS: oxyCODONE SR 20 mg TAB PO SCH ×4 (03:20→21:00)
[2021-06-17] MEDS: Polyethylene Glycol 3350 17 GM PACKET PO SCH (08:47)
[2021-06-17] MEDS: Enoxaparin 40 MG/0.4 ML SYR SUBCUT SCH (14:58)
[2021-06-18] MEDS: oxyCODONE SR 20 mg TAB PO SCH ×4 (03:01→21:05)
[2021-06-18] MEDS: Polyethylene Glycol 3350 17 GM PACKET PO SCH (10:01)
[2021-06-18] MEDS: Enoxaparin 40 MG/0.4 ML SYR SUBCUT SCH (15:16)
[2021-06-19] MEDS: oxyCODONE SR 20 mg TAB PO SCH ×4 (03:08→21:15)
[2021-06-19] MEDS: Polyethylene Glycol 3350 17 GM PACKET PO SCH (09:09)
[2021-06-19] MEDS: Enoxaparin 40 MG/0.4 ML SYR SUBCUT SCH (14:28)
[2021-06-20] MEDS: oxyCODONE SR 20 mg TAB PO SCH ×2 (02:48→08:14)
[2021-06-20 07:45] VITALS: BP 137/70
[2021-06-20] MEDS: Polyethylene Glycol 3350 17 GM PACKET PO SCH (08:22)
[2021-06-20 08:41] LABS: Rapid COVID-19 Molecular Undetected (Undetected)
== END 2021-06-20 11:55 | DRG 554 ==
LOC: MEDTELE 14:41 → SUATTDRO 14:41 → MED 06-17 16:39
PROVIDERS: ADMIT Internal Medicine; ATTEND Internal Medicine

== ENCOUNTER 2024-04-01 17:50 | Inpatient (IN) ==
[2024-04-01 19:05] LABS: ABS Basophils 0.1 10^3/uL (0.0-0.1); ABS Eosinophils 0.1 10^3/uL (0.0-0.5); ABS Lymphocytes 0.6 10^3/uL (1.0-4.8); ABS Monocytes 0.2 10^3/uL (0.0-1.1); ABS Nucleated RBC 0.02 10^3/ul; Eosinophil % 0.5 %; Hemoglobin 11.7 g/dL (13.2-16.3); Lymphocyte % 4.4 %; Mean Corpuscular Hemoglobin 31.5 pg (27-33); Mean Corpuscular Hgb Conc 32.6 g/dL (31-36); Mean Corpuscular Volume 96.6 fL (80-97); Mean Platelet Volume 8.9 fL (7.5-11.2); Nucleated Red Blood Cells % 0.1 %/100WBC (0.0-0.8); Platelet Count 296 10^3/uL (150-450); Red Blood Count 3.72 10^6/uL (4.06-5.63); Red Cell Distribution Width 17.5 % (12-17)
[2024-04-01 19:23] LABS: Activated Partial Thrombo Time 35.7 seconds (26.0-38.0); INR 1.02 (0.85-1.14)
[2024-04-01 19:38] LABS: Albumin 3.9 g/dL (3.5-5.7); Albumin/Globulin Ratio 1.6 (1-3); C Reactive Protein 2.87 mg/L (<8.01); Calcium 9.1 mg/dL (8.6-10.3); Creatinine, Serum 6.18 mg/dL (0.67-1.17); Globulin 2.5 g/dL (2-4); Potassium 5.3 mmol/L (3.5-5.0); Total Bilirubin 0.2 mg/dL (0.2-1.0); Total Protein 6.4 g/dL (6.4-8.9); eGFR CKD-EPI 9.2 (>60)
[2024-04-01] MEDS: Lactated Ringers 1000 ml BAG 1,000 ML IV ONE (19:43)
[2024-04-01 21:27] LABS: High Sensitivity Troponin 1 Hr 26 pg/mL (<20)
[2024-04-01 23:37] LABS: TSH Ultra Thyroid Stim Horm 3.53 mcIU/mL (0.34-5.60)
[2024-04-01 23:58] LABS: Urine Appearance Turbid; Urine Bilirubin Negative (Negative); Urine Blood Trace (Negative); Urine Color Light-Yellow; Urine Glucose Trace (Negative); Urine Ketones Negative (Negative); Urine Nitrite 1+ (Negative); Urine Protein 3+ (>=300 mg/dL) (Negative); Urine Specific Gravity 1.014 (1.002-1.030); Urine Urobilinogen Negative (Negative)
[2024-04-02 00:09] LABS: Urine Bacteria 1+ /HPF (Absent); Urine Red Blood Cell Trace(0-2/hpf) /HPF (0-Trace); Urine Squamous Epithelial Cell Present /HPF (Absent); Urine White Blood Cell 3+(>20/hpf) /HPF (0-Trace)
[2024-04-02 06:10] LABS: ABS Basophils 0.1 10^3/uL (0.0-0.1); ABS Lymphocytes 0.5 10^3/uL (1.0-4.8); ABS Monocytes 0.6 10^3/uL (0.0-1.1); ABS Neutrophils 11.3 10^3/uL (1.5-7.6); ABS Nucleated RBC 0.01 10^3/ul; Hematocrit 31.3 % (38-53); Hemoglobin 10.5 g/dL (13.2-16.3); Lymphocyte % 4.2 %; Mean Corpuscular Hemoglobin 32.1 pg (27-33); Mean Corpuscular Hgb Conc 33.4 g/dL (31-36); Mean Platelet Volume 8.9 fL (7.5-11.2); Platelet Count 266 10^3/uL (150-450); Red Blood Count 3.26 10^6/uL (4.06-5.63); Red Cell Distribution Width 17.3 % (12-17); White Blood Count 12.6 10^3/uL (3.6-10.2)
[2024-04-02 06:28] LABS: Calcium 8.9 mg/dL (8.6-10.3); Potassium 5.2 mmol/L (3.5-5.0); eGFR CKD-EPI 9.5 (>60)
[2024-04-02] MEDS: cefTRIAXone 1 gm/50 mL D5W 1 GM/50 ML BAG IV SCH (08:13)
[2024-04-02] MEDS: SODIUM ZIRCONIUM CYCLOSILICATE 10 GM PACKET PO ONE (13:31)
[2024-04-02 14:53] LABS: Hepatitis B Surface Ab Immune (Immune); Hepatitis C Antibody Negative (Negative)
[2024-04-02] MEDS ORDERED: Senna TAB 8.6 mg TAB PO PRN (17:37)
[2024-04-02 21:05] LABS: Hepatitis B Surface Antigen Nonreactive (Nonreactive)
[2024-04-03 05:56] LABS: Hematocrit 29.6 % (38-53); Mean Corpuscular Hemoglobin 32.4 pg (27-33); Mean Corpuscular Hgb Conc 33.8 g/dL (31-36); Mean Platelet Volume 9.5 fL (7.5-11.2); Platelet Count 257 10^3/uL (150-450); Red Blood Count 3.09 10^6/uL (4.06-5.63)
[2024-04-03 06:14] LABS: Calcium 8.9 mg/dL (8.6-10.3); Creatinine, Serum 6.24 mg/dL (0.67-1.17); Magnesium 2.1 mg/dL (1.9-2.7); Potassium 4.5 mmol/L (3.5-5.0); eGFR CKD-EPI 9.1 (>60)
[2024-04-03 08:09] LABS: C Reactive Protein 2.83 mg/L (<8.01)
[2024-04-03] MEDS: Albuterol/Ipratropium NEB.SOL (2.5/0.5 MG) 3 ML NEB.SOLN INH ONE (09:05)
[2024-04-03] MEDS: Azithromycin 500 mg/250 ml NS 500 MG/250 ML BAG IVPB SCH (10:22)
[2024-04-04 06:58] LABS: Hematocrit 32.6 % (38-53); Mean Corpuscular Hemoglobin 32.2 pg (27-33); Mean Corpuscular Hgb Conc 33.7 g/dL (31-36); Mean Corpuscular Volume 95.5 fL (80-97); Mean Platelet Volume 9.2 fL (7.5-11.2); Platelet Count 280 10^3/uL (150-450); Red Blood Count 3.42 10^6/uL (4.06-5.63); Red Cell Distribution Width 16.9 % (12-17); White Blood Count 14.7 10^3/uL (3.6-10.2)
[2024-04-04 07:15] LABS: Calcium 8.6 mg/dL (8.6-10.3); Creatinine, Serum 5.6 mg/dL (0.67-1.17); Magnesium 1.9 mg/dL (1.9-2.7); Potassium 4.4 mmol/L (3.5-5.0); eGFR CKD-EPI 10.3 (>60)
[2024-04-04] MEDS: Lidocaine PATCH 5% PATCH TRANSDERM SCH (16:01)
[2024-04-05 06:55] LABS: Hematocrit 31.4 % (38-53); Hemoglobin 10.6 g/dL (13.2-16.3); Mean Corpuscular Hemoglobin 32.3 pg (27-33); Mean Corpuscular Hgb Conc 33.7 g/dL (31-36); Mean Corpuscular Volume 95.8 fL (80-97); Mean Platelet Volume 9.1 fL (7.5-11.2); Platelet Count 275 10^3/uL (150-450); Red Blood Count 3.28 10^6/uL (4.06-5.63); White Blood Count 13.2 10^3/uL (3.6-10.2)
[2024-04-05 07:24] LABS: Calcium 8.3 mg/dL (8.6-10.3); Creatinine, Serum 5.05 mg/dL (0.67-1.17); Magnesium 1.8 mg/dL (1.9-2.7); Potassium 4.2 mmol/L (3.5-5.0); eGFR CKD-EPI 11.7 (>60)
[2024-04-05] MEDS: Magnesium Sulfate 2 gm BAG 2 GM/50 ML BAG IVPB ONE (09:41)
[2024-04-05] MEDS: dilTIAZem 30 MG TAB PO ONE (10:37)
[2024-04-05 15:06] LABS: TB1 Ag minus Nil Result -0.01 IU/mL; TB2 Ag minus Nil Result -0.01 IU/mL
[2024-04-05 15:15] LABS: QuantiferonTb Gold Plus Result Negative (Negative)
[2024-04-05] MEDS ORDERED: dilTIAZem 30 MG TAB PO SCH ×2 (18:00)
[2024-04-05] MEDS: dilTIAZem 30 MG TAB PO SCH (18:09)
[2024-04-06 06:26] LABS: Hematocrit 31.9 % (38-53); Hemoglobin 10.6 g/dL (13.2-16.3); Mean Corpuscular Hemoglobin 31.7 pg (27-33); Mean Corpuscular Hgb Conc 33.1 g/dL (31-36); Mean Corpuscular Volume 95.7 fL (80-97); Mean Platelet Volume 9.6 fL (7.5-11.2); Platelet Count 298 10^3/uL (150-450); Red Blood Count 3.34 10^6/uL (4.06-5.63); White Blood Count 14.1 10^3/uL (3.6-10.2)
[2024-04-06 06:53] LABS: Calcium 8.7 mg/dL (8.6-10.3); Creatinine, Serum 5.27 mg/dL (0.67-1.17); Magnesium 2.2 mg/dL (1.9-2.7); Phosphorus 6.3 mg/dL (2.5-5.0); Potassium 4.5 mmol/L (3.5-5.0); eGFR CKD-EPI 11.1 (>60)
[2024-04-06 07:26] LABS: ABS Basophils 0.2 10^3/uL (0.0-0.1); ABS Eosinophils 0.8 10^3/uL (0.0-0.5); ABS Lymphocytes 1.2 10^3/uL (1.0-4.8); ABS Monocytes 1.6 10^3/uL (0.0-1.1); ABS Neutrophils 10.3 10^3/uL (1.5-7.6); ABS Nucleated RBC 0.02 10^3/ul; Eosinophil % 5.6 %; Lymphocyte % 8.5 %; Nucleated Red Blood Cells % 0.1 %/100WBC (0.0-0.8)
[2024-04-06] MEDS ORDERED: dilTIAZem 30 MG TAB PO SCH (09:00)
[2024-04-06 13:09] VITALS: BP 114/78
== END 2024-04-06 16:40 | disposition home or self-care (01) | DRG 871 ==
LOC: EDHOLD 17:50 → ED 17:50 → SUATTDRO 22:42 → MED 23:47
PROVIDERS: ADMIT Hospitalist; ATTEND Internal Medicine

== ENCOUNTER 2024-05-06 22:15 | Inpatient (IN) ==
[2024-05-06 23:05] LABS: ABS Basophils 0.2 10^3/uL (0.0-0.1); ABS Eosinophils 0.6 10^3/uL (0.0-0.5); ABS Lymphocytes 1.3 10^3/uL (1.0-4.8); ABS Monocytes 1.1 10^3/uL (0.0-1.1); ABS Neutrophils 10.6 10^3/uL (1.5-7.6); ABS Nucleated RBC 0.01 10^3/ul; Eosinophil % 4.2 %; Hematocrit 31.9 % (38-53); Hemoglobin 10.3 g/dL (13.2-16.3); Lymphocyte % 9.8 %; Mean Corpuscular Hemoglobin 30.9 pg (27-33); Mean Corpuscular Hgb Conc 32.4 g/dL (31-36); Mean Corpuscular Volume 95.4 fL (80-97); Mean Platelet Volume 8.8 fL (7.5-11.2); Nucleated Red Blood Cells % 0.1 %/100WBC (0.0-0.8); Platelet Count 289 10^3/uL (150-450); Red Blood Count 3.35 10^6/uL (4.06-5.63); Red Cell Distribution Width 17.4 % (12-17); White Blood Count 13.7 10^3/uL (3.6-10.2)
[2024-05-06] MEDS: Amiodarone 150 mg IVPREMIX 150 MG/100 ML BAG IV ONE (23:05)
[2024-05-06 23:15] LABS: INR 1.17 (0.85-1.14)
[2024-05-06 23:51] LABS: Albumin 3.1 g/dL (3.5-5.7); Albumin/Globulin Ratio 1.3 (1-3); Calcium 8.3 mg/dL (8.6-10.3); Creatinine, Serum 6.25 mg/dL (0.67-1.17); Globulin 2.4 g/dL (2-4); Magnesium 1.8 mg/dL (1.9-2.7); Potassium 4.5 mmol/L (3.5-5.0); Total Bilirubin 0.2 mg/dL (0.2-1.0); Total Protein 5.5 g/dL (6.4-8.9)
[2024-05-07 00:06] LABS: TSH Ultra Thyroid Stim Horm 6.69 mcIU/mL (0.34-5.60)
[2024-05-07] MEDS: Magnesium Sulfate IV 1GM/100ML 1 GM/100 ML BAG IV ONE (00:06)
[2024-05-07] MEDS ORDERED: .Amiodarone 24HR ONLY IV Protocol Order Note IV ONE (00:08)
[2024-05-07] MEDS: Amiodarone 360 MG IVPREMIX 360 MG/200 ML BAG IV SCH ×2 (00:28→06:33)
[2024-05-07 00:49] LABS: High Sensitivity Troponin 1 Hr 58 pg/mL (<20)
[2024-05-07 01:06] LABS: HDL Cholesterol 27.1 mg/dL
[2024-05-07] MEDS: Heparin DRIP 25,000 UNITS BAG 25,000 UNITS/250 ML BAG IV SCH ×3 (01:45→14:57)
[2024-05-07] MEDS ORDERED: Heparin 5000 UNITS/ML 1 mL VIAL IV SCH ×2 (02:00→10:00)
[2024-05-07 03:35] LABS: Urine Appearance Clear; Urine Bilirubin Negative (Negative); Urine Blood Negative (Negative); Urine Color Light-Yellow; Urine Glucose 2+ (>=150 mg/dL) (Negative); Urine Ketones Negative (Negative); Urine Nitrite Negative (Negative); Urine Protein 3+ (>=300 mg/dL) (Negative); Urine Specific Gravity 1.014 (1.002-1.030); Urine Urobilinogen Negative (Negative); Urine pH 6.5 (5.0-8.0)
[2024-05-07 04:28] LABS: Urine Bacteria Absent /HPF (Absent); Urine Red Blood Cell Absent /HPF (0-Trace); Urine Squamous Epithelial Cell Present /HPF (Absent); Urine White Blood Cell Trace(0-5/hpf) /HPF (0-Trace)
[2024-05-07 06:14] LABS: Creatinine, Serum 5.91 mg/dL (0.67-1.17); Phosphorus 7.2 mg/dL (2.5-5.0); Potassium 4.5 mmol/L (3.5-5.0); eGFR CKD-EPI 9.6 (>60)
[2024-05-07] MEDS ORDERED: Sulfur Hexaflouride MICROSPHR 25 MG VIAL IV PRN (08:26)
[2024-05-07] MEDS ORDERED: Sulfur Hexaflouride MICROSPHR 25 MG VIAL ONE (09:01)
[2024-05-07] MEDS: Heparin 1,000 UNIT/ML 10 ml (10,000 UNITS) CATHLAB/DIALYSIS DIALYSIS ONE ×2 (09:24→11:33)
[2024-05-07] MEDS: Sulfur Hexaflouride MICROSPHR 25 MG VIAL IV PRN (09:46)
[2024-05-07] MEDS: Pantoprazole VIAL 40 MG VIAL IV SCH (11:31)
[2024-05-07 14:33] LABS: Creatinine, Serum 5.63 mg/dL (0.67-1.17); eGFR CKD-EPI 10.2 (>60)
[2024-05-07 14:37] LABS: ABS Basophils 0.2 10^3/uL (0.0-0.1); ABS Eosinophils 0.4 10^3/uL (0.0-0.5); ABS Lymphocytes 1.8 10^3/uL (1.0-4.8); ABS Monocytes 1.3 10^3/uL (0.0-1.1); Eosinophil % 2.7 %; Hematocrit 30.7 % (38-53); Hemoglobin 10.1 g/dL (13.2-16.3); Lymphocyte % 12.1 %; Mean Corpuscular Hemoglobin 31.4 pg (27-33); Mean Corpuscular Hgb Conc 33.1 g/dL (31-36); Mean Corpuscular Volume 94.8 fL (80-97); Mean Platelet Volume 9.5 fL (7.5-11.2); Platelet Count 277 10^3/uL (150-450); Red Blood Count 3.23 10^6/uL (4.06-5.63); Red Cell Distribution Width 16.8 % (12-17); White Blood Count 14.6 10^3/uL (3.6-10.2)
[2024-05-07] MEDS: Clindamycin 900 MG/D5W BAG 900 MG/50 ML BAG IVPB ONE (16:37)
[2024-05-07] MEDS: Heparin 5000 UNITS/ML 1 mL VIAL IV SCH (22:03)
[2024-05-08 04:44] LABS: ABS Basophils 0.2 10^3/uL (0.0-0.1); ABS Eosinophils 0.6 10^3/uL (0.0-0.5); ABS Lymphocytes 2.5 10^3/uL (1.0-4.8); ABS Monocytes 1.4 10^3/uL (0.0-1.1); ABS Nucleated RBC 0.01 10^3/ul; Eosinophil % 4.4 %; Hematocrit 29.7 % (38-53); Hemoglobin 9.8 g/dL (13.2-16.3); Lymphocyte % 18.5 %; Mean Corpuscular Hemoglobin 31.3 pg (27-33); Mean Platelet Volume 9.2 fL (7.5-11.2); Platelet Count 251 10^3/uL (150-450); Red Blood Count 3.13 10^6/uL (4.06-5.63); Red Cell Distribution Width 17.3 % (12-17); White Blood Count 13.7 10^3/uL (3.6-10.2)
[2024-05-08 05:28] LABS: Calcium 8.3 mg/dL (8.6-10.3); Creatinine, Serum 5.31 mg/dL (0.67-1.17); Magnesium 1.9 mg/dL (1.9-2.7); Phosphorus 7.1 mg/dL (2.5-5.0); Potassium 4.1 mmol/L (3.5-5.0); eGFR CKD-EPI 10.9 (>60)
[2024-05-08] MEDS: Magnesium Sulfate 2 gm BAG 2 GM/50 ML BAG IVPB ONE (08:50)
[2024-05-08] MEDS ORDERED: Heparin 1,000 UNIT/ML 10 ml (10,000 UNITS) CATHLAB/DIALYSIS ONE (09:31)
[2024-05-08] MEDS ORDERED: VERAPAMIL 2.5 MG/ML 2 ML VIAL ** 5 mg/2 ml ONE (09:31)
[2024-05-08] MEDS ORDERED: Lidocaine 1% MPF 5 ML VIAL ONE (09:31)
[2024-05-08] MEDS ORDERED: nitroGLYCERIN DRIP 50,000 MCG/250 ML BTL ONE (09:32)
[2024-05-08] MEDS ORDERED: Iohexol 350 (CONTRAST) 100 ML PAK IV ONE (09:32)
[2024-05-08] MEDS ORDERED: Heparin 2 UNITS/ML 1000 mls 2,000 ML IV ONE (09:32)
[2024-05-08] MEDS ORDERED: fentaNYL 100 mcg/2 ml 50 MCG/ML VIAL ONE (09:53)
[2024-05-08] MEDS ORDERED: Midazolam 5 mg/5 ml VIAL 1 mg/ml 5 ml VIAL (5 mg) ONE (09:53)
[2024-05-08] MEDS: NS 0.9% 1000 ml BAG 1,000 ML IV SCH (11:16)
[2024-05-08] MEDS ORDERED: Dexmedetomidine 200 mcg/2 ml 2 ml VIAL (200 mcg) ONE (12:22)
[2024-05-08] MEDS ORDERED: Propofol 10 mg/ml 100 ML BTL 1,000 MG/100 ML BTL ONE (12:22)
[2024-05-08] MEDS ORDERED: Clindamycin 900 MG/50 **NS BAG 0 MG/0 ML BAG ONE (12:35)
[2024-05-08] MEDS ORDERED: Lidocaine 1% VIAL 10 MG/ML 30 ML VIAL ONE (13:07)
[2024-05-08] MEDS ORDERED: Iohexol 300 (CONTRAST) 10 ML SDV ONE (13:07)
[2024-05-08] MEDS ORDERED: Phenylephrine IV 10 MG/ML 1 ml VIAL ONE (14:06)
[2024-05-08] MEDS: Heparin 1,000 UNIT/ML 10 ml (10,000 UNITS) CATHLAB/DIALYSIS DIALYSIS SCH (15:41)
[2024-05-08] MEDS: Clindamycin 900 MG/D5W BAG 900 MG/50 ML BAG IVPB ONE (15:44)
[2024-05-08] MEDS: Mupirocin 2% OINT TUBE TOPICAL SCH (21:25)
[2024-05-09 06:13] LABS: Calcium 8.4 mg/dL (8.6-10.3); Creatinine, Serum 5.43 mg/dL (0.67-1.17); Magnesium 2.3 mg/dL (1.9-2.7); Phosphorus 6.7 mg/dL (2.5-5.0); Potassium 4.2 mmol/L (3.5-5.0); eGFR CKD-EPI 10.6 (>60)
[2024-05-09] MEDS ORDERED: Heparin 1,000 UNIT/ML 10 ml (10,000 UNITS) CATHLAB/DIALYSIS DIALYSIS SCH (09:00)
[2024-05-09 12:28] LABS: High Sensitivity Troponin 1 Hr 74 pg/mL (<20)
[2024-05-09] MEDS: Polyethylene Glycol 3350 17 GM PACKET PO PRN (14:12)
[2024-05-10 06:47] LABS: Hematocrit 30.5 % (38-53); Hemoglobin 10.1 g/dL (13.2-16.3); Mean Corpuscular Hemoglobin 31.6 pg (27-33); Mean Corpuscular Hgb Conc 33.3 g/dL (31-36); Mean Corpuscular Volume 94.9 fL (80-97); Mean Platelet Volume 9.4 fL (7.5-11.2); Platelet Count 257 10^3/uL (150-450); Red Blood Count 3.21 10^6/uL (4.06-5.63); Red Cell Distribution Width 17.3 % (12-17); White Blood Count 11.5 10^3/uL (3.6-10.2)
[2024-05-10 07:45] LABS: Calcium 8.3 mg/dL (8.6-10.3); Creatinine, Serum 5.59 mg/dL (0.67-1.17); Phosphorus 6.4 mg/dL (2.5-5.0); Potassium 4.5 mmol/L (3.5-5.0); eGFR CKD-EPI 10.3 (>60)
[2024-05-10 07:51] LABS: Schistocytes 1+
[2024-05-10 07:54] LABS: ABS Basophils 0.1 10^3/uL (0.0-0.1); ABS Eosinophils 0.8 10^3/uL (0.0-0.5); ABS Lymphocytes 1.6 10^3/uL (1.0-4.8); ABS Monocytes 1.6 10^3/uL (0.0-1.1); ABS Neutrophils 7.4 10^3/uL (1.5-7.6); ABS Nucleated RBC 0.01 10^3/ul; Anisocytosis 1+; Eosinophil % 6.6 %; Lymphocyte % 13.9 %; Microcytosis 1+
[2024-05-11 06:34] LABS: Hematocrit 30.8 % (38-53); Hemoglobin 10.3 g/dL (13.2-16.3); Mean Corpuscular Hemoglobin 31.6 pg (27-33); Mean Corpuscular Hgb Conc 33.3 g/dL (31-36); Mean Corpuscular Volume 94.7 fL (80-97); Mean Platelet Volume 9.8 fL (7.5-11.2); Platelet Count 231 10^3/uL (150-450); Red Blood Count 3.25 10^6/uL (4.06-5.63); Red Cell Distribution Width 17.1 % (12-17); White Blood Count 11.4 10^3/uL (3.6-10.2)
[2024-05-11 06:49] LABS: Calcium 8.4 mg/dL (8.6-10.3); Creatinine, Serum 5.65 mg/dL (0.67-1.17); Potassium 4.3 mmol/L (3.5-5.0); eGFR CKD-EPI 10.1 (>60)
[2024-05-11] MEDS ORDERED: Magnesium Hydroxide LIQ 30 ML UDC PO PRN (15:29)
[2024-05-11] MEDS: Senna TAB 8.6 mg TAB PO SCH (20:55)
[2024-05-11] MEDS ORDERED: Magnesium Hydroxide LIQ 30 ML UDC PO SCH (21:00)
[2024-05-12 05:51] LABS: Hematocrit 29.7 % (38-53); Hemoglobin 9.9 g/dL (13.2-16.3); Mean Corpuscular Hemoglobin 31.3 pg (27-33); Mean Corpuscular Hgb Conc 33.4 g/dL (31-36); Mean Corpuscular Volume 93.7 fL (80-97); Mean Platelet Volume 9.3 fL (7.5-11.2); Platelet Count 239 10^3/uL (150-450); Red Blood Count 3.17 10^6/uL (4.06-5.63); Red Cell Distribution Width 17.1 % (12-17); White Blood Count 11.7 10^3/uL (3.6-10.2)
[2024-05-12 06:25] LABS: Calcium 8.7 mg/dL (8.6-10.3); Creatinine, Serum 5.46 mg/dL (0.67-1.17); Potassium 4.7 mmol/L (3.5-5.0); eGFR CKD-EPI 10.6 (>60)
[2024-05-12 08:12] LABS: Magnesium 1.8 mg/dL (1.9-2.7); Phosphorus 6.2 mg/dL (2.5-5.0)
[2024-05-12] MEDS: Magnesium Sulfate 2 gm BAG 2 GM/50 ML BAG IVPB ONE (08:50)
[2024-05-12] MEDS: dilTIAZem 30 MG TAB PO ONE (12:31)
[2024-05-12 14:27] VITALS: BP 122/72
== END 2024-05-12 17:00 | disposition home or self-care (01) | DRG 228 ==
LOC: ED 22:15 → SUATTDRO 05-07 00:06 → EDHOLD 05-07 00:06 → ICU 05-07 07:00 → MED 05-08 17:48
PROVIDERS: ADMIT Internal Medicine Critical Care Medicine; ATTEND Hospitalist